=== PATIENT | female | born 1980 | race Caucasian/White ===

== ENCOUNTER → 2016-07-20 | Outpatient (CLI) | payer BC ==
[~2016-07-20] MED LIST: AMPH1TAB58 PO; ATV5X PO; B-CO1CAP3; CLR10 PO; CONJ.6255 PO; DICY10CA12 PO; ERGO500037 PO; ESTR0.05 TOP; LSX20 PO; MAGN400T6 PO; MULT-506 PO; OMEP20CA9 PO; SERT100T PO; THY/30 PO
== END | disposition home or self-care (01) ==
LOC: C.PAPS 13:47
PROVIDERS: ATTEND Obstetrics & Gynecology
DX: Z01.419 Encounter for gynecological examination (general) (routine) without abnormal findings (principal)

== ENCOUNTER → 2016-07-21 | Outpatient (CLI) | payer BC | END | disposition home or self-care (01) | LOC: C.LAB1850 08:04 | PROVIDERS: ATTEND Obstetrics & Gynecology | DX: E28.8 Other ovarian dysfunction (principal) ==

== ENCOUNTER → 2016-08-10 | Outpatient (CLI) | payer BC | END | disposition home or self-care (01) | LOC: C.MAMM 14:08 | PROVIDERS: ATTEND Obstetrics & Gynecology | DX: E28.8 Other ovarian dysfunction (principal); M85.859 Other specified disorders of bone density and structure, unspecified thigh ==

== ENCOUNTER → 2016-08-27 | Outpatient (CLI) | payer BC ==
[~2016-08-27] MED LIST changes: -B-CO1CAP3; -ERGO500037 PO; -ESTR0.05 TOP; -MAGN400T6 PO; -MULT-506 PO; -THY/30 PO
[2016-08-27 09:48] LABS: ALT/SGPT 24 U/L (12-78); BLOOD UREA NITROGEN 9 mg/dl (7-18); BUN/CREATININE RATIO 13.5 (10-20); CALCIUM 8.8 mg/dl (8.5-10.1); CARBON DIOXIDE 26 mmol/L (21-32); CHLORIDE 105 mmol/L (98-107); CREATININE 0.65 mg/dl (0.60-1.20); GLUCOSE 91 mg/dl (70-99); MAGNESIUM 1.8 mg/dl (1.8-2.4); POTASSIUM 4.1 mmol/L (3.5-5.1); SODIUM 138 mmol/L (136-145)
[2016-08-27 09:56] LABS: ALB/GLOB RATIO 1.1 (0.9-2); ALKALINE PHOSPHATASE 33 U/L (45-117); AST/SGOT 16 U/L (15-37); FERRITIN 32.5 ng/ml (8.0-388.0); PHOSPHORUS 3.6 mg/dl (2.5-4.9)
[2016-08-30 18:20] LABS: INSULIN LIKE GF BIND PROT 3 4.8 mg/L (3.4-7.0); INSULIN LIKE GROWTH FACTOR-I 227 ng/mL (53-331)
== END | disposition home or self-care (01) ==
LOC: C.LAB1850 07:40
PROVIDERS: ATTEND Internal Medicine Endocrinology, Diabetes & Metabolism
DX: R63.4 Abnormal weight loss (principal); E55.9 Vitamin D deficiency, unspecified; E72.12 Methylenetetrahydrofolate reductase deficiency; M85.80 Other specified disorders of bone density and structure, unspecified site

== ENCOUNTER → 2016-09-22 | Day surgery (SDC) | payer BC ==
[~2016-09-22] VITALS: Ht 172.7 cm; Wt 63.5 kg
[~2016-09-22] MED LIST changes: +B-CO1CAP3; +COSYNTROPIN INJ 1 MCG in SYRINGE 0 ML IV SCH; +ERGO500037 PO; +ESTR0.05 TOP; +MAGN400T6 PO; +MULT-506 PO; +THY/30 PO
[2016-09-22 07:51] VITALS: BP 110/72; PULSE 84; TEMP 36.7; O2SAT 99; Ht 172.7 cm; Wt 63.5 kg
--- NOTE | 2016-09-25 11:54 | EDITING REQUIRED CODING QUERY ---
DIAGNOSIS NEEDED To promote full compliance with coding requirements relating to patient care, physician participation is requested in all cases of cloth sander uncertainty. Please assist us with the question(s) below: Coding Question: The patient underwent cortrosyn stimulation on 09/22/16 as noted in the orders on the record. Please document the diagnosis that is being addressed by the medication/treatment. Provider Response: DIAGNOSIS: Thank you for your assistance, Denisa Vieira - Board Mixer Tender
== END | disposition home or self-care (01) ==
LOC: C.MTU 07:42
PROVIDERS: ATTEND Internal Medicine Endocrinology, Diabetes & Metabolism
DX: E28.8 Other ovarian dysfunction (principal); R53.83 Other fatigue; E03.9 Hypothyroidism, unspecified; E31.0 Autoimmune polyglandular failure

== ENCOUNTER → 2016-10-07 | Outpatient (CLI) | payer BC ==
[~2016-10-07] MED LIST changes: -CONJ.6255 PO; -COSYNTROPIN INJ 1 MCG in SYRINGE 0 ML IV SCH; -LSX20 PO; -OMEP20CA9 PO
[2016-10-07 10:23] LABS: THYROID STIMULATING HORMONE 3.1 uIu/ml (0.300-4.500)
== END | disposition home or self-care (01) ==
LOC: C.LAB1850 07:24
PROVIDERS: ATTEND Internal Medicine Endocrinology, Diabetes & Metabolism
DX: E03.9 Hypothyroidism, unspecified (principal); E31.0 Autoimmune polyglandular failure

== ENCOUNTER → 2016-12-09 | Outpatient (CLI) | payer BC ==
[2016-12-09 12:57] LABS: TESTOSTERONE,TOTAL 157.3 ng/dl
[2016-12-09 13:47] LABS: THYROID STIMULATING HORMONE 2.26 uIu/ml (0.300-4.500)
== END | disposition home or self-care (01) ==
LOC: C.LAB1850 10:13
PROVIDERS: ATTEND Internal Medicine Endocrinology, Diabetes & Metabolism
DX: N95.8 Other specified menopausal and perimenopausal disorders (principal); E03.9 Hypothyroidism, unspecified

== ENCOUNTER → 2017-02-18 | Outpatient (CLI) | payer OTHER ==
[~2017-02-18] MED LIST changes: -B-CO1CAP3; +B-CO1CAP3 PO; +CYCL5TAB PO; +ESTR10TA PV; +ESTR1DIS PV; +EYE DROPS OPB; +HYDR5TAB57 PO; +LEVO100T PO; +PROG1CAP PV; +RIBO1TAB4 PO; +RIZA5TAB10 PO; +[UNRECOGNIZED DRUG - CODE] INJ
== END | disposition home or self-care (01) ==
LOC: C.LAB1850 09:29
PROVIDERS: ATTEND Internal Medicine Endocrinology, Diabetes & Metabolism
DX: E03.9 Hypothyroidism, unspecified (principal)

== ENCOUNTER → 2017-03-16 | Outpatient (CLI) | payer OTHER ==
[~2017-03-16] MED LIST changes: -CYCL5TAB PO; -ESTR10TA PV; -EYE DROPS OPB; -HYDR5TAB57 PO; -LEVO100T PO; -RIBO1TAB4 PO; -RIZA5TAB10 PO; -[UNRECOGNIZED DRUG - CODE] INJ
[2017-03-16 09:35] LABS: BASO % 0.5 %; BASO ABS # 0.02 K/uL (0-0.2); EOS ABS # 0.25 K/uL (0-0.5); HEMATOCRIT 43.3 % (37-47); HEMOGLOBIN 14.5 g/dL (12.0-16.0); IG# 0.01 K/uL (0.00-0.02); LYMPH % 32.5 %; LYMPH ABS # 1.35 K/uL (1.2-3.4); MEAN CELL VOLUME 95.4 fL (80-100); MEAN CORPUSCULAR HEMOGLOBIN 31.9 pg (25-34); MEAN CORPUSCULAR HGB CONC 33.5 g/dl (32-36); MONO % 6.3 %; MONO ABS # 0.26 K/uL (0.11-0.59); NEUT % 54.5 %; NEUT ABS # 2.26 K/uL (1.4-6.5); PLATELET COUNT 224 K/uL (130-400); RED CELL DISTRIBUTION WIDTH CV 12.8 % (11.5-14.5); RED CELL DISTRIBUTION WIDTH SD 43.7 fL (36.4-46.3); WHITE BLOOD COUNT 4.15 K/uL (4.8-10.8)
[2017-03-16 09:49] LABS: BLOOD UREA NITROGEN 10 mg/dl (7-18); CREATININE 0.67 mg/dl (0.60-1.20); GLUCOSE 94 mg/dl (70-99)
[2017-03-16 09:50] LABS: ALBUMIN 4.1 gm/dl (3.4-5.0); ALT/SGPT 16 U/L (12-78); CALCIUM 8.9 mg/dl (8.5-10.1); CARBON DIOXIDE 26 mmol/L (21-32); SODIUM 136 mmol/L (136-145)
[2017-03-16 09:51] LABS: CORTISOL AM*DRAW BETWEEN 7-9AM 12.02 mcg/dl (4.30-22.40)
[2017-03-16 09:52] LABS: ALKALINE PHOSPHATASE 32 U/L (45-117); AST/SGOT 14 U/L (15-37); TOTAL PROTEIN 7.6 gm/dl (6.4-8.2)
[2017-03-20 00:32] LABS: INSULIN LIKE GROWTH FACTOR-I 190 ng/mL (53-331)
== END | disposition home or self-care (01) ==
LOC: C.LAB1850 07:26
PROVIDERS: ATTEND Internal Medicine Endocrinology, Diabetes & Metabolism
DX: E31.0 Autoimmune polyglandular failure (principal)

== ENCOUNTER → 2017-03-19 | Day surgery (SDC) | payer OTHER ==
[~2017-03-19] VITALS: Ht 172.7 cm; Wt 67.2 kg
[~2017-03-19] MED LIST changes: +COSYNTROPIN INJ 1 MCG in SYRINGE 0 ML IV SCH
--- NOTE | 2017-03-19 07:52 | DIAGNOSTIC IMAGING REPORT ---
Thyroid ultrasonography CLINICAL HISTORY: Z98.890 H/O [id number] COMPARISON STUDY: Outside examination dated 07/05/2015 FINDINGS: There are postsurgical changes of a right lobe thyroidectomy. The left lobe measures 5.3 x 1.6 x 1.3 cm. There is a minimally hypoechoic circumscribed wider than tall 5 mm left lobe thyroid nodule. This remains unchanged from the preceding study. This nodule demonstrates no suspicious morphologic characteristics. IMPRESSION: 1. Interval right lobe thyroidectomy 2. Stable 5 mm left lobe thyroid nodule Electronically signed by: John Ames M.D. 03/19/2017 7:50 AM Dictated Date/Time: 03/19/2017 7:48 AM
[2017-03-19 08:04] VITALS: BP 109/74; PULSE 82; TEMP 36.8; O2SAT 99; Ht 172.7 cm; Wt 67.2 kg
[2017-03-19 09:16] VITALS: BP 110/77; PULSE 77; TEMP 36.5; O2SAT 99
[2017-03-19 09:51] VITALS: BP 123/82; PULSE 77; TEMP 36.9; O2SAT 99
== END | disposition home or self-care (01) ==
LOC: C.MTU 07:10
PROVIDERS: ATTEND Internal Medicine Endocrinology, Diabetes & Metabolism
DX: Z98.890 Other specified postprocedural states (principal); E04.1 Nontoxic single thyroid nodule

== ENCOUNTER → 2017-05-21 | Outpatient (CLI) | payer OTHER ==
[~2017-05-21] MED LIST changes: -COSYNTROPIN INJ 1 MCG in SYRINGE 0 ML IV SCH; -ESTR0.05 TOP
== END | disposition home or self-care (01) ==
LOC: C.LAB1850 09:59
PROVIDERS: ATTEND Internal Medicine Endocrinology, Diabetes & Metabolism
DX: M85.80 Other specified disorders of bone density and structure, unspecified site (principal); E31.0 Autoimmune polyglandular failure

== ENCOUNTER → 2017-06-25 | Outpatient (CLI) | payer OTHER ==
[~2017-06-25] MED LIST changes: -B-CO1CAP3 PO; +CYCL5TAB PO; +ESTR10TA PV; -ESTR1DIS PV; +EYE DROPS OPB; +HYDR5TAB57 PO; +LEVO100T PO; -PROG1CAP PV; +RIBO1TAB4 PO; +RIZA5TAB10 PO; -THY/30 PO; +[UNRECOGNIZED DRUG - CODE] INJ
== END | disposition home or self-care (01) ==
LOC: C.LAB1850 08:08
PROVIDERS: ATTEND Internal Medicine Endocrinology, Diabetes & Metabolism
DX: E28.8 Other ovarian dysfunction (principal); E03.9 Hypothyroidism, unspecified; M85.80 Other specified disorders of bone density and structure, unspecified site

== ENCOUNTER → 2017-06-28 | Day surgery (SDC) | payer OTHER ==
[2017-06-22 10:46] VITALS: Ht 172.7 cm; Wt 76.3 kg
--- NOTE | 2017-06-22 11:24 | PAT Medication Instructions ---
Service Date June 22, 2017. Current Home Medication List Amphetamine-Dextroamphetamine 5MG (Adderall 5MG), 5 MG PO TID Cyclobenzaprine Hcl (Flexeril), 5 MG PO TID PRN for PRN Dicyclomine Hcl (Dicyclomine Hcl), 20 MG PO BID PRN for Cramping or Diarrhea Ergocalciferol (Vitamin D 18271 Unit), 50,000 UNIT PO WK Estradiol Vaginal (Vagifem), 1 TAB PV Q3-4MONTHS Hydrocortisone (Cortef), 5 MG PO BID Hydrocortisone Sod Succinate (Solu-Cortef), 100 MG INJ UD PRN for RN Levothyroxine Sodium (Synthroid), 100 MCG PO AM Loratadine (Claritin), 10 MG PO DAILY PRN for Seasonal Allergies Lorazepam (Lorazepam), 0.5 MG PO BID PRN for Anxiety and/or Sedation Magnesium Oxide (Mag-Ox), 400 MG PO QPM Multivitamin (Multivitamin), 1 TAB PO QPM Riboflavin (Riboflavin), 400 MG PO QPM Rizatriptan Benzoate (Maxalt), 5 MG PO UD PRN for N Sertraline Hcl (Zoloft), 100 MG PO QPM [Eye Drops], 1 DROP OPB QAM Medication Instructions For Your Scheduled Surgery -Continue as directed: Ergocalciferol (Vitamin D 84415 Unit), 50,000 UNIT PO WK Estradiol Vaginal (Vagifem), 1 TAB PV Q3-4MONTHS - Hold the following medications the morning of surgery: Amphetamine-Dextroamphetamine 5MG (Adderall 5MG), 5 MG PO TID Cyclobenzaprine Hcl (Flexeril), 5 MG PO TID PRN for PRN Dicyclomine Hcl (Dicyclomine Hcl), 20 MG PO BID PRN for Cramping or Diarrhea Loratadine (Claritin), 10 MG PO DAILY PRN for Seasonal Allergies - Take the following medications the morning of surgery with a sip of water: Hydrocortisone (Cortef), 5 MG PO BID Hydrocortisone Sod Succinate (Solu-Cortef), 100 MG INJ UD PRN (if needed) Levothyroxine Sodium (Synthroid), 100 MCG PO AM Lorazepam (Lorazepam), 0.5 MG PO BID PRN for Anxiety and/or Sedation (if needed) Rizatriptan Benzoate (Maxalt), 5 MG PO UD PRN (if needed) [Eye Drops], 1 DROP OPB QAM - Take the following medications as scheduled the night before surgery: Amphetamine-Dextroamphetamine 5MG (Adderall 5MG), 5 MG PO TID Cyclobenzaprine Hcl (Flexeril), 5 MG PO TID PRN for PRN (if needed) Dicyclomine Hcl (Dicyclomine Hcl), 20 MG PO BID PRN for Cramping or Diarrhea ( if needed) Hydrocortisone (Cortef), 5 MG PO BID Hydrocortisone Sod Succinate (Solu-Cortef), 100 MG INJ UD PRN (if needed) Loratadine (Claritin), 10 MG PO DAILY PRN for Seasonal Allergies (if needed) Lorazepam (Lorazepam), 0.5 MG PO BID PRN for Anxiety and/or Sedation (if needed) Magnesium Oxide (Mag-Ox), 400 MG PO QPM Multivitamin (Multivitamin), 1 TAB PO QPM Riboflavin (Riboflavin), 400 MG PO QPM Rizatriptan Benzoate (Maxalt), 5 MG PO UD PRN (if needed) Sertraline Hcl (Zoloft), 100 MG PO QPM FOLLOW YOUR FINANCIAL ASSISTANCE ADVISOR'S INSTRUCTIONS FOR STRESS DOSING OF CORTEF If you have any questions please call us at [phone] or [phone] or [phone]
[2017-06-22 12:57] LABS: BASO % 0.7 %; BASO ABS # 0.03 K/uL (0-0.2); EOS % 2.7 %; EOS ABS # 0.12 K/uL (0-0.5); HEMATOCRIT 40.4 % (37-47); HEMOGLOBIN 13.7 g/dL (12.0-16.0); LYMPH % 32.6 %; LYMPH ABS # 1.43 K/uL (1.2-3.4); MEAN CELL VOLUME 94.6 fL (80-100); MEAN CORPUSCULAR HEMOGLOBIN 32.1 pg (25-34); MEAN CORPUSCULAR HGB CONC 33.9 g/dl (32-36); MEAN PLATELET VOLUME 10.3 fL (7.4-10.4); MONO ABS # 0.22 K/uL (0.11-0.59); NEUT ABS # 2.58 K/uL (1.4-6.5); PLATELET COUNT 241 K/uL (130-400); RED CELL DISTRIBUTION WIDTH CV 12.2 % (11.5-14.5); RED CELL DISTRIBUTION WIDTH SD 41.7 fL (36.4-46.3); WHITE BLOOD COUNT 4.38 K/uL (4.8-10.8)
[2017-06-22 13:13] LABS: CALCIUM 8.8 mg/dl (8.5-10.1); CREATININE 0.68 mg/dl (0.60-1.20); POTASSIUM 4.6 mmol/L (3.5-5.1)
[~2017-06-28] VITALS: Ht 172.7 cm; Wt 76.3 kg
[~2017-06-28] MED LIST changes: +ATROPINE SULFATE 0.1 MG/ML 5ML SYR IV PRN; +DEXAMETHASONE SOD INJ 4 MG/ML VIAL ONE; +FENTANYL CITRATE INJ 50 MCG/1 ML 2 ML VIAL IV PRN; +FENTANYL CITRATE INJ 50 MCG/1 ML 2 ML VIAL ONE; +HYDROCORTISONE SOD SUCCINATE 100 MG/2 ML VIAL IV SCH; +KETOROLAC TROMETHAMINE 30 MG/ML VIAL ONE; +LACTATED RINGER'S 1000ML 1,000 ML IV SCH; +LIDOCAINE HCL 2% 2 ML VIAL (20MG/ML) ONE; +MIDAZOLAM HCL 1 MG/ML 2ML VIAL ONE; +ONDANSETRON INJ 2 MG/ML 2 ML VIAL IV PRN; +ONDANSETRON INJ 2 MG/ML 2 ML VIAL ONE; +OXYCODONE/ACETAMINOPHEN 5-325 TAB PO PRN; +PROMETHAZINE HCL INJ 25 MG in SODIUM CHLORIDE 0.9% 50ML 50 ML IV PRN; +PROPOFOL IV EMULSION 10 MG/ML 20 ML VIAL ONE; +SCOPOLAMINE 1.5 MG TDSY TD ONE; +SILVER NITR/POTASSIUM NITRATE APPLICATOR ONE; +SODIUM CHLORIDE 0.9% 1000ML 1,000 ML IV SCH
[2017-06-28 05:45] VITALS: BP 100/76; PULSE 87; TEMP 36.7; O2SAT 99
--- NOTE | 2017-06-28 06:58 | History & Physical Bridge Note ---
H&P Re-Evaluation Bridge Note: I have examined the patient, reviewed the History & Physical and in the interval since the performance of the History & Physical I have noted the following changes of clinical significance: No changes noted. Per endocrinology , 50mg IV hydrocortisone at beginning of procedure, then double dose of home steroids for 2 days, return to normal dosage on 3rd day.
--- NOTE | 2017-06-28 07:48 | [facility] Post Operative Brief Note ---
Immediate Operative Summary Operative Date June 28, 2017. Pre-Operative Diagnosis Thickened endometrium Post-Operative Diagnosis Same as preop Procedure(s) Performed Dilation and Curettage, Hysteroscopy, Polypectomy Surgeon Dr. 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
--- NOTE | 2017-06-28 07:51 | Discharge Instructions ---
Discharge Instructions Date of Service June 28, 2017. Visit Reason for Visit: Thickened Endometrium Discharge Discharge Diagnosis / Problem: s/p D&C Discharge Goals Goal(s): Diagnostic testing, Therapeutic intervention Activity Recommendations Activity Limitations: per Instructions/Follow-up section Anesthesia . Post Anesthesia Instructions: If you have had General Anesthesia or IV Sedation: * Do not drive today. * Resume driving when surgeon permits. * Do not make important decisions or sign legal documents today. * Call surgeon for: 1. Temperature elevations greater than 101 degrees F. 2. Uncontrollable pain. 3. Excessive bleeding. 4. Persistent nausea and vomiting. 5. Medication intolerance (nausea, vomiting or rash). * For nausea and vomiting use only clear liquids such as: tea, soda, bouillon until nausea subsides, then gradually increase diet as tolerated. * If you have any concerns or questions, call your surgeon's office. If physician is unavailable and it is an emergency, call 911 or go to the nearest emergency room. . Instructions / Follow-Up Instructions / Follow-Up ACTIVITY RECOMMENDATIONS: * Avoid tampons, douching, hot tubs, pools, and intercourse until bleeding has stopped. * May shower as usual. * No strenuous activity for 24-48 hours. After 24-48 hours, you may do anything you feel like doing (driving and sports are okay). SPECIAL CARE INSTRUCTIONS: Special Diet: * Mild nausea may occur in the immediate post-operative period. * Take clear liquids such as tea, cola or bouillon until all nausea has subsided; you may then resume your normal diet. Special Care: * Light bleeding and vaginal spotting can last from a few days to 3-4 weeks. Call your doctor if bleeding becomes heavier than the heaviest part of your period. * Check your temperature twice a day for one week. If it goes above 100.4 degrees Fahrenheit (38.0 Celsius), notify your doctor. * Call your doctor's office for an appointment for 6 weeks after your surgery. FOLLOW-UP VISIT: Call your doctor's office for an appointment for 6 weeks after your surgery. Diet Recommendations Recommended Home Diet: resume previous diet Procedures Procedures Performed: Dilation and Curettage, Hysteroscopy, Polypectomy Pending Studies Studies pending at discharge: yes List of pending studies: Path: endometrial curettings, cervical polyp Medical Emergencies . Who to Call and When: Medical Emergencies: If at any time you feel your situation is an emergency, please call 911 immediately. . Non-Emergent Contact Non-Emergency issues call your: Primary Care Provider, Scouring Machine Tender . . "Provider Documentation" section prepared by Meche Montgomery. .
--- NOTE | 2017-06-28 07:57 | [facility] Operative Report ---
Operative Report Operative Date June 28, 2017. Pre-Operative Diagnosis Thickened endometrium Post-Operative Diagnosis Same as preop Procedure(s) Performed Dilation and Curettage, Hysteroscopy, Polypectomy Surgeon Dr. 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 That ultrasound reported thickened endometrium and she was recommended to undergo hysteroscopy D&C. She has history of premature ovarian failure, hypothyroidism, adrenal insufficiency. She has seen endocrinology at [facility] and was most recently seen a animal rehabilitator in [facility] using estradiol and testosterone let us and Prometrium 200 mg for 10 days every 3 months for withdrawal bleed. Description of Procedure The patient was seen in the preoperative holding area risks benefits alternatives to surgery were reviewed she elected to proceed with the case. Informed consent had been obtained in the office prior to the procedure. All questions were answered. The patient was taken the operating room, where general anesthesia was administered. She received 50 mg IV hydrocortisone prior to procedure per the recommendations of endocrinology. She is prepared and draped in the usual sterile fashion with feet in yellowfin stirrups in the dorsal lithotomy position. Timeout was confirmed. A weighted speculum was placed in the vagina the cervix was visualized, and grasped on its anterior lip with a single tooth tenaculum. The uterus was sounded to 7 cm, and the cervix was gently dilated to admit the hysteroscope. 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 No obvious endometrial polyp, however a small anterior cervical polyp was noted the hysteroscope was removed, and a gentle curettage was undertaken with a sharp curette. Next, the cervical polyp was grasped with an Allis clamp, and using Metzenbaum scissors the polyp was resected and sent to pathology as a separate specimen. Hemostasis was achieved with direct pressure. Patient tolerated the procedure well, and was taken to the recovery area in stable and good condition. I attest to the content of the Intraoperative Record and any orders documented therein. Any exceptions are noted below.
[2017-06-28 08:55] VITALS: BP 114/77; PULSE 79; TEMP 36.4; O2SAT 99
[2017-06-28 09:10] VITALS: BP 111/75; PULSE 69; TEMP 36.4; O2SAT 100
--- NOTE | 2017-06-28 09:19 | Anesthesiology Progress Note ---
Anesthesia Post Op Note Date & Time June 28, 2017 at 09:19 Vital Signs Pain Intensity: 3 Vital Signs Past 12 Hours Date Time Temp Pulse Resp B/P (MAP) Pulse Ox O2 Delivery O2 Flow Rate FiO2 06/28/17 08:45 36.7 73 14 117/80 98 Room Air 06/28/17 08:35 74 12 123/85 98 Room Air 06/28/17 08:25 71 15 114/81 100 Room Air 06/28/17 08:15 68 12 116/75 100 Oxymask 10 06/28/17 08:05 83 20 128/77 100 Oxymask 10 06/28/17 07:58 36.0 88 16 127/76 100 Oxymask 10 06/28/17 05:45 36.7 87 18 100/76 (84) 99 Room Air Notes Mental Status: alert / awake / arousable, participated in evaluation Pt Amnestic to Procedure: Yes Nausea / Vomiting: adequately controlled Pain: adequately controlled Airway Patency, RR, SpO2: stable & adequate BP & HR: stable & adequate Hydration State: stable & adequate Anesthetic Complications: no major complications apparent
[2017-06-28 09:25] VITALS: BP 121/75; PULSE 70; O2SAT 99
[2017-06-28 09:58] VITALS: BP 108/65; PULSE 78; TEMP 36.4; O2SAT 99
== END | disposition home or self-care (01) ==
LOC: C.ACU 05:12
PROVIDERS: ATTEND Obstetrics & Gynecology
DX: R93.8 Abnormal findings on diagnostic imaging of other specified body structures (principal); N84.1 Polyp of cervix uteri; F90.9 Attention-deficit hyperactivity disorder, unspecified type; F43.10 Post-traumatic stress disorder, unspecified; E27.40 Unspecified adrenocortical insufficiency; F17.210 Nicotine dependence, cigarettes, uncomplicated; R63.4 Abnormal weight loss; E72.12 Methylenetetrahydrofolate reductase deficiency; E55.9 Vitamin D deficiency, unspecified; Z98.890 Other specified postprocedural states; E03.9 Hypothyroidism, unspecified; Z88.1 Allergy status to other antibiotic agents; Z82.5 Family history of asthma and other chronic lower respiratory diseases; Z82.49 Family history of ischemic heart disease and other diseases of the circulatory system; Z83.49 Family history of other endocrine, nutritional and metabolic diseases

== ENCOUNTER → 2017-09-07 | Outpatient (CLI) | payer OTHER ==
[~2017-09-07] MED LIST changes: -ATROPINE SULFATE 0.1 MG/ML 5ML SYR IV PRN; -DEXAMETHASONE SOD INJ 4 MG/ML VIAL ONE; -ESTR10TA PV; -FENTANYL CITRATE INJ 50 MCG/1 ML 2 ML VIAL IV PRN; -FENTANYL CITRATE INJ 50 MCG/1 ML 2 ML VIAL ONE; -HYDROCORTISONE SOD SUCCINATE 100 MG/2 ML VIAL IV SCH; -KETOROLAC TROMETHAMINE 30 MG/ML VIAL ONE; -LACTATED RINGER'S 1000ML 1,000 ML IV SCH; -LIDOCAINE HCL 2% 2 ML VIAL (20MG/ML) ONE; -MIDAZOLAM HCL 1 MG/ML 2ML VIAL ONE; -ONDANSETRON INJ 2 MG/ML 2 ML VIAL IV PRN; -ONDANSETRON INJ 2 MG/ML 2 ML VIAL ONE; -OXYCODONE/ACETAMINOPHEN 5-325 TAB PO PRN; -PROMETHAZINE HCL INJ 25 MG in SODIUM CHLORIDE 0.9% 50ML 50 ML IV PRN; -PROPOFOL IV EMULSION 10 MG/ML 20 ML VIAL ONE; -SCOPOLAMINE 1.5 MG TDSY TD ONE; -SILVER NITR/POTASSIUM NITRATE APPLICATOR ONE; -SODIUM CHLORIDE 0.9% 1000ML 1,000 ML IV SCH
== END | disposition home or self-care (01) ==
LOC: C.LAB1850 09:54
PROVIDERS: ATTEND Internal Medicine Endocrinology, Diabetes & Metabolism
DX: E03.9 Hypothyroidism, unspecified (principal)

== ENCOUNTER 2022-04-17 14:55 | Inpatient (IN) ==
--- NOTE | 2022-04-17 15:14 | Emergency Department Note ---
Impression & Plan Alcohol withdrawal, Acute dehydration ED Provider Note NAME: GATO LÓPEZ AGE: 41 SEX: F : 1980 ARRIVES VIA: Walk-In INFORMANT: Patient, ED PROVIDER(S): Jam Aragon MD CHIEF COMPLAINT: Alcohol withdrawal MEDICAL DECISION MAKING: IV was established blood work is obtained the patient was placed on monitor. The patient did have banana bag ordered loaded with 50 of Librium and given 5 of IV Valium due to concern for withdrawal symptoms. Patient's blood work showed a normal white count H&H and platelet count kidney function is unremarkable BSG of 93. AST at 50 lipase and other LFTs unremarkable. B12 and folate ordered. Folate low vitamin B12 normal. Coags normal COVID-negative. Given the patient's alcohol withdrawal related symptoms do believe the patient would benefit from admission. Critical Care: I have personally spent 45 minutes of critical care time in direct management of this patient. This includes bedside care, interpretation of diagnostic studies, and testing, discussion with consultants, patient, and family members, and other require inpatient management activities. This 45 minutes is in excess of all separately billable procedures. Prior /Outside records reviewed: None Differential diagnosis: Alcohol intoxication, alcohol withdrawal, toxicologic, infection, hypoglycemia, electrolyte abnormalities, arrhythmias, dehydration among others were considered Diagnostics, as interpreted by me: ECG: Sinus tachycardia, rate of 104 normal intervals normal axis no ST elevations, T wave version aVL but not in lead I. Cardiac monitoring: An order was placed for continuous cardiac monitoring. The monitor shows a rate of 92 with sinus rhythm. Patient was placed on pulse oximetry Medical decision rules: none Imaging studies: See below HPI: Patient presents due to concern for alcohol withdrawal. Patient states that last drink was at 2:00 this morning and typically drinks 10 mixed drinks per day which may have up to 2 shots per drink. The patient has been drinking like this over the last 4 to 6 months. Patient denies any nausea or vomiting. The patient has had worsening drinking over 2 years but especially over the last several months. The patient has no prior history of DTs or seizures. Patient does want to stop drinking and is interested in inpatient rehab. Patient denies any drug use but does use tobacco. PAST MEDICAL HISTORY: See Below PAST SURGICAL HISTORY: See Below SOCIAL HISTORY: See Below HOME MEDICATIONS: See Below ALLERGIES: See Below VITALS: See Below PHYSICAL EXAMINATION: GENERAL: NAD, wearing a mask, non-toxic. Wearing glasses. Tremulous. EYE EXAM: Normal conjunctiva. PERRL, no anisocoria and EOM's grossly intact w/o pain. NECK: Supple, no nuchal rigidity, no adenopathy, non-tender. No signs of meningismus. FROM of the neck with good chin to chest and neck extension. No stridor. LUNGS: Clear to auscultation. Normal chest wall mechanics. HEART: NSR, no MRG. ABDOMEN: Abdomen soft, non-tender, normo-active bowel sounds, no masses, no rebound or guarding. BACK: No CVA TTP. SKIN: No rashes and no bruising. UPPER EXTREMITIES: Upper extremities are grossly normal. Bilateral upper extremity tremors noted LOWER EXTREMITIES: Grossly normal, no edema. NEURO EXAM: A&O x3, cranial nerves II-XII grossly intact, normal speech, moves all 4 extremities. Past Med/Surg History Medical History Adrenal insufficiency almost certainly NOT but uses hydrocortisone PRN "ill" Adult ADHD Anxiety Chronic headaches Hypothyroidism MTHFR gene mutation No personal hx DVT/PE; not on AC Premature ovarian failure Tobacco use Surgical History History of colonoscopy History of cryosurgery History of esophagogastroduodenoscopy (EGD) History of hysteroscopy D&C, hysteroscopy, polypectomy: 06/28/17: LMA#4 at [facility] S/P thyroidectomy Right thyroidectomy for benign nodule Family History Father Aortic dissection Dyslipidemia Hypertension Mother COPD (chronic obstructive pulmonary disease) Hypertension Hypothyroidism Other Cancer Social History Smoking Status: Current every day smoker Tobacco Type: Cigarettes Cigarettes Per Day: 1 pack per day; Tobacco Cessation Education Requested by Patient: No Hx Alcohol Use: Yes Hx Substance Use: Yes Non-Prescribed Medications: Marijuana Last Used Substance: Days (ago) Last Used Substance Other:: 3 days ago Preferred Language: Welsh Communication Ability: Effective House Wirer Required: No marital status: Current Living Situation: Family Current Living Situation Comment: Lives with parents current occupational status: employed Other Information That Helps Us Care for You: No Feels Safe at Home: Yes Safety Concerns: Feels Safe At This Time Assistive Devices: Contacts and Glasses Allergies Allergies Allergy/AdvReac Type Severity Reaction Status Date / Time ciprofloxacin Allergy Intermediate swelling Verified 12/10/21 03:17 estrogens, conjugated Allergy Intermediate rash, Verified 12/10/21 03:17 swelling medroxyprogesterone Allergy Intermediate rash, Verified 12/10/21 03:17 swelling prednisone Allergy Intermediate rash , Verified 12/10/21 03:17 swelling Home Meds Home Medications Medication Instructions Recorded Confirmed dextroamphetamine-amphetamine 10 10 mg PO DAILY 12/10/21 04/17/22 mg tablet dextroamphetamine-amphetamine 15 15 mg PO BID 12/10/21 04/17/22 mg tablet hydroxyzine HCl 25 mg tablet 25 mg PO BID PRN Anxiety 12/10/21 04/17/22 sertraline 100 mg tablet (Zoloft) 100 mg PO DAILY 12/10/21 04/17/22 Results & Data (ED) Vital Signs Vital Signs - 24 hr 04/17/22 14:57 Temperature 36.7 C Temperature Source Temporal Artery Scan Pulse Rate 121 H Respiratory Rate 20 Respiratory Effort / Characteristics Non-Labored Respiratory Depth Normal Blood Pressure 163/99 H Blood Pressure Mean 120 Blood Pressure Position Sitting Pulse Oximetry 97 Oxygen Delivery Method Room Air Sepsis Recent Fever Within 48 Hours No Sepsis New/Unexplained Change in Mental Status No Sepsis Action Taken by Nursing No Action Required Home Medications Current Medication List: was personally reviewed by me Laboratory Data Attestation: I reviewed the patient's lab results. 04/18/22 04:25 04/18/22 04:25 Lab Results 04/17/22 04/17/22 04/17/22 Range/Units 16:00 16:00 16:00 WBC 6.15 (4.8-10.8) K/ul RBC 4.02 L (4.20-5.40) M/uL Hgb 14.3 (12.0-16.0) g/dl Hct 40.2 (37.0-47.0) % MCV 100.0 (80.0-100.0) fL MCH 35.6 H (25.0-34.0) pg MCHC 35.6 (32.0-36.0) g/dL RDW Std Deviation 46.0 (36.4-46.3) fL RDW Coeff of Ashley 12.4 (11.5-14.5) % Plt Count 201 (130-400) K/uL MPV 10.5 (9.4-12.4) fL Immature Gran % (Auto) 0.3 % Neut % (Auto) 70.9 % Lymph % (Auto) 20.3 % [place] % (Auto) 5.7 % Eos % (Auto) 2.3 % Baso % (Auto) 0.5 % Neut # (Auto) 4.36 (1.40-6.50) K/uL Lymph # (Auto) 1.25 (1.2-3.4) K/uL [place] # (Auto) 0.35 (0.11-0.59) K/uL Eos # (Auto) 0.14 (0-0.50) K/uL Baso # (Auto) 0.03 (0-0.2) K/uL Immature Gran # (Auto) 0.02 (0.01-0.20) K/uL PT (9.0-12.0) Seconds INR (0.9-1.1) APTT (21.0-31.0) Seconds PTT Ratio Sodium 140 (136-145) mmol/L Potassium 3.8 (3.5-5.1) mmol/L Chloride 105 (98-107) mmol/L Carbon Dioxide 29 (21-32) mmol/L Anion Gap 6 (3-11) BUN 9 (6-23) mg/dl Creatinine 0.62 (0.6-1.2) mg/dl Est Cr Clr Drug Dosing 121.7 ml/min Est GFR ( Amer) 130.7 ml/min Est GFR (Non-Af Amer) 112.8 ml/min BUN/Creatinine Ratio 14.5 (10-20) Glucose 93 (70-99(Fasting)) mg/dl Calcium 9.5 (8.5-10.1) mg/dl Total Bilirubin 0.7 (0.2-1.0) mg/dl AST 50 H (13-39) U/L ALT 38 (7-52) U/L Alkaline Phosphatase 53 (34-104) U/L Total Protein 8.0 (6.0-8.3) gm/dl Albumin 4.6 (3.4-5.0) gm/dl Globulin 3.4 (2.5-4.0) gm/dl Albumin/Globulin Ratio 1.4 (0.9-2) Lipase 36 (11-82) U/L Vitamin B12 526 (180-914) pg/ml Folate 5.18 L (>5.38) ng/ml TSH (0.300-4.500) uIu/ml Ethyl Alcohol mg/dL (<10.0) mg/dl SARS-CoV-2, RNA, NAAT (NEGATIVE) 04/17/22 04/17/22 04/17/22 Range/Units 16:00 16:00 16:00 WBC (4.8-10.8) K/ul RBC (4.20-5.40) M/uL Hgb (12.0-16.0) g/dl Hct (37.0-47.0) % MCV (80.0-100.0) fL MCH (25.0-34.0) pg MCHC (32.0-36.0) g/dL RDW Std Deviation (36.4-46.3) fL RDW Coeff of Ashley (11.5-14.5) % Plt Count (130-400) K/uL MPV (9.4-12.4) fL Immature Gran % (Auto) % Neut % (Auto) % Lymph % (Auto) % [place] % (Auto) % Eos % (Auto) % Baso % (Auto) % Neut # (Auto) (1.40-6.50) K/uL Lymph # (Auto) (1.2-3.4) K/uL [place] # (Auto) (0.11-0.59) K/uL Eos # (Auto) (0-0.50) K/uL Baso # (Auto) (0-0.2) K/uL Immature Gran # (Auto) (0.01-0.20) K/uL PT 10.7 (9.0-12.0) Seconds INR 1.0 (0.9-1.1) APTT 25.3 (21.0-31.0) Seconds PTT Ratio 0.9 Sodium (136-145) mmol/L Potassium (3.5-5.1) mmol/L Chloride (98-107) mmol/L Carbon Dioxide (21-32) mmol/L Anion Gap (3-11) BUN (6-23) mg/dl Creatinine (0.6-1.2) mg/dl Est Cr Clr Drug Dosing ml/min Est GFR ( Amer) ml/min Est GFR (Non-Af Amer) ml/min BUN/Creatinine Ratio (10-20) Glucose (70-99(Fasting)) mg/dl Calcium (8.5-10.1) mg/dl Total Bilirubin (0.2-1.0) mg/dl AST (13-39) U/L ALT (7-52) U/L Alkaline Phosphatase (34-104) U/L Total Protein (6.0-8.3) gm/dl Albumin (3.4-5.0) gm/dl Globulin (2.5-4.0) gm/dl Albumin/Globulin Ratio (0.9-2) Lipase (11-82) U/L Vitamin B12 (180-914) pg/ml Folate (>5.38) ng/ml TSH 3.604 (0.300-4.500) uIu/ml Ethyl Alcohol mg/dL < 10.0 (<10.0) mg/dl SARS-CoV-2, RNA, NAAT (NEGATIVE) 04/17/22 Range/Units 16:00 WBC (4.8-10.8) K/ul RBC (4.20-5.40) M/uL Hgb (12.0-16.0) g/dl Hct (37.0-47.0) % MCV (80.0-100.0) fL MCH (25.0-34.0) pg MCHC (32.0-36.0) g/dL RDW Std Deviation (36.4-46.3) fL RDW Coeff of Ashley (11.5-14.5) % Plt Count (130-400) K/uL MPV (9.4-12.4) fL Immature Gran % (Auto) % Neut % (Auto) % Lymph % (Auto) % [place] % (Auto) % Eos % (Auto) % Baso % (Auto) % Neut # (Auto) (1.40-6.50) K/uL Lymph # (Auto) (1.2-3.4) K/uL [place] # (Auto) (0.11-0.59) K/uL Eos # (Auto) (0-0.50) K/uL Baso # (Auto) (0-0.2) K/uL Immature Gran # (Auto) (0.01-0.20) K/uL PT (9.0-12.0) Seconds INR (0.9-1.1) APTT (21.0-31.0) Seconds PTT Ratio Sodium (136-145) mmol/L Potassium (3.5-5.1) mmol/L Chloride (98-107) mmol/L Carbon Dioxide (21-32) mmol/L Anion Gap (3-11) BUN (6-23) mg/dl Creatinine (0.6-1.2) mg/dl Est Cr Clr Drug Dosing ml/min Est GFR ( Amer) ml/min Est GFR (Non-Af Amer) ml/min BUN/Creatinine Ratio (10-20) Glucose (70-99(Fasting)) mg/dl Calcium (8.5-10.1) mg/dl Total Bilirubin (0.2-1.0) mg/dl AST (13-39) U/L ALT (7-52) U/L Alkaline Phosphatase (34-104) U/L Total Protein (6.0-8.3) gm/dl Albumin (3.4-5.0) gm/dl Globulin (2.5-4.0) gm/dl Albumin/Globulin Ratio (0.9-2) Lipase (11-82) U/L Vitamin B12 (180-914) pg/ml Folate (>5.38) ng/ml TSH (0.300-4.500) uIu/ml Ethyl Alcohol mg/dL (<10.0) mg/dl SARS-CoV-2, RNA, NAAT NEGATIVE (NEGATIVE) Administered Medications Discontinued Medications Acetaminophen (Acetaminophen 325 Mg Tab) 650 mg PO Q4H PRN PRN Reason: Pain or Fever Stop: 05/17/22 19:47 Last Admin: 04/18/22 10:01 Dose: 650 mg Documented By: MCKENNA Chlordiazepoxide HCl (Chlordiazepoxide Hcl 25 Mg Cap) 50 mg PO NOW ONE Stop: 04/17/22 15:30 Last Admin: 04/17/22 16:06 Dose: 50 mg Documented By: XIANG Diazepam (Diazepam 5 Mg/Ml Inj 10ml Vial) 5 mg IV NOW STA Stop: 04/17/22 15:30 Last Admin: 04/17/22 16:09 Dose: 5 mg Documented By: XIANG Diazepam (Diazepam 2 Mg Tablet) 2 mg PO NOW ONE Stop: 04/18/22 00:15 Last Admin: 04/18/22 00:28 Dose: 2 mg Documented By: SKIP Diazepam (Diazepam 2 Mg Tablet) 2 mg PO NOW ONE Stop: 04/18/22 19:43 Last Admin: 04/18/22 20:52 Dose: Not Given Documented By: AISHWARYA Folic Acid (Folic Acid 1 Mg Tab) 1 mg PO QAM [facility] Stop: 05/18/22 08:59 Last Admin: 04/18/22 09:44 Dose: 1 mg Documented By: MCKENNA Gabapentin (Gabapentin 600 Mg Tab) 600 mg PO Q8H [facility] Stop: 04/19/22 14:01 Last Admin: 04/18/22 20:53 Dose: Not Given Documented By: AISHWARYA Gabapentin (Gabapentin 600 Mg Tab) 600 mg PO Q6H [facility] Stop: 04/18/22 12:01 Last Admin: 04/18/22 11:46 Dose: 600 mg Documented By: Admin: 04/18/22 05:27 Dose: 600 mg Documented By: SKIP Gabapentin (Gabapentin 600 Mg Tab) 1,200 mg PO NOW ONE Stop: 04/17/22 20:01 Last Admin: 04/17/22 20:18 Dose: 1,200 mg Documented By: ESTEFANI Guaifenesin (Guaifenesin 600 Mg Tabcr) 600 mg PO Q12 [facility] Stop: 05/18/22 10:44 Last Admin: 04/18/22 20:53 Dose: Not Given Documented By: Admin: 04/18/22 10:51 Dose: 600 mg Documented By: MCKENNA Multivitamins 10 ml/ Thiamine HCl 100 mg/ Folic Acid 1 mg/Sodium Chloride 1 ,011.2 mls @ 500 mls/hr IV .Q2H2M ONE Stop: 04/17/22 17:30 Last Infusion: 04/17/22 17:35 Dose: 0 mls/hr Documented By: Admin: 04/17/22 16:09 Dose: 500 mls/hr Documented By: XIANG Thiamine HCl 100 mg/ Syringe 10 mls @ 2 [facility] [place]: 05/18/22 08:59 Last Admin: 04/18/22 09:44 Dose: 2 mls/min Documented By: MCKENNA Lorazepam (Lorazepam 2 Mg/1 Ml Vial) 1 mg IV UD PRN; Protocol PRN Reason: EtOH Withdrawal AWSS Score 6,7 Stop: 05/17/22 19:47 Last Admin: 04/18/22 16:34 Dose: 1 mg Documented By: Admin: 04/18/22 12:18 Dose: 1 mg Documented By: MCKENNA Lorazepam (Lorazepam 0.5 Mg Tab) 0.5 mg PO NOW STA Stop: 04/17/22 23:01 Last Admin: 04/17/22 23:04 Dose: 0.5 mg Documented By: MARGO Miscellaneous (Remove Nicoderm Patch) 1 each N/A DAILY@0859 [facility] Stop: 05/18/22 08:58 Last Admin: 04/18/22 09:48 Dose: 1 each Documented By: MCKENNA Nicotine (Nicotine 21 Mg/24 Hr Tdsy) 21 mg TD QAM [facility] Stop: 04/17/22 17:02 Last Admin: 04/17/22 17:36 Dose: 21 mg Documented By: XIANG Nicotine (Nicotine 14 Mg/24 Hr Patch) 14 mg TD QAM [facility] Stop: 05/18/22 12:14 Last Admin: 04/18/22 12:11 Dose: 14 mg Documented By: MCKENNA Pantoprazole Sodium (Pantoprazole 40 Mg Tab) 40 mg PO QAM [facility] Stop: 05/18/22 19:59 Last Admin: 04/18/22 20:52 Dose: Not Given Documented By: MNM Discharge Plan Visit Data Chief Complaint: Detox Request Stated Complaint: ALCOHOL DETOX ED Provider: Jam Aragon Discharge Problem: Alcohol withdrawal, Acute dehydration Patient Disposition: Admitted As Inpatient Discharge Instructions Interventions: ED Discharge Assessment Last Done: 04/17/22 19:49
[2022-04-17] MEDS ORDERED: chlordiazePOXIDE HCl 25 MG CAP PO ONE (15:29)
[2022-04-17] MEDS ORDERED: LORazepam 2 MG/1 ML VIAL IV PRN ×6 (15:29→19:48)
[2022-04-17] MEDS ORDERED: MULTI-VITAMIN INFUSION 10 ML, THIAMINE HCL 100 MG, FOLIC ACID 1 MG in SODIUM CHLORIDE 0... IV ONE (15:29)
[2022-04-17] MEDS ORDERED: Ativan IV Alcohol Withdrawal--Active Protocol IV PRN ×2 (15:29→19:48)
[2022-04-17 16:23] LABS: Basophils # (auto) 0.03 K/uL (0-0.2); Basophils % (auto) 0.5 %; Eosinophils # (auto) 0.14 K/uL (0-0.50); Eosinophils % (auto) 2.3 %; Hematocrit (blood only) 40.2 % (37.0-47.0); Hemoglobin 14.3 g/dl (12.0-16.0); Immature Granulocytes # (auto) 0.02 K/uL (0.01-0.20); Immature Granulocytes % (auto) 0.3 %; Lymphocytes # (auto) 1.25 K/uL (1.2-3.4); Lymphocytes % (auto) 20.3 %; Mean Corpuscular Hemoglobin 35.6 pg (25.0-34.0); Mean Corpuscular Hgb Conc 35.6 g/dL (32.0-36.0); Mean Platelet Volume 10.5 fL (9.4-12.4); Monocytes # (auto) 0.35 K/uL (0.11-0.59); Monocytes % (auto) 5.7 %; Neutrophils # (auto) 4.36 K/uL (1.40-6.50); Neutrophils % (auto) 70.9 %; Platelet Count 201 K/uL (130-400); RDW Coefficient of Variation 12.4 % (11.5-14.5); Red Blood Count 4.02 M/uL (4.20-5.40); White Blood Count 6.15 K/ul (4.8-10.8)
[2022-04-17 16:37] LABS: Albumin Globulin Ratio 1.4 (0.9-2); Albumin Level 4.6 gm/dl (3.4-5.0); BUN Creatinine Ratio 14.5 (10-20); Bilirubin,Total 0.7 mg/dl (0.2-1.0); Calcium 9.5 mg/dl (8.5-10.1); Creatinine Clr Calc Pharmacy 121.7 ml/min; Est GFR (African American) 130.7 ml/min; Est GFR (Non-African American) 112.8 ml/min; Globulin 3.4 gm/dl (2.5-4.0); Potassium 3.8 mmol/L (3.5-5.1)
[2022-04-17 17:01] LABS: Partial Thromboplastin Ratio 0.9; Partial Thromboplastin Time 25.3 Seconds (21.0-31.0); Prothrombin Time 10.7 Seconds (9.0-12.0)
[2022-04-17] MEDS ORDERED: NICOTINE 21 MG/24 HR TDSY TD STA (17:01)
--- NOTE | 2022-04-17 17:42 | History & Physical Report ---
Date of Service April 17, 2022 Assessment & Plan (1) Alcohol withdrawal: Plan: Patient is a 41-year-old female with PMH anxiety, depression, PTSD, ADHD, hypothyroidism, ovarian failure, secondary adrenal insufficiency, tobacco use presented to ER for alcohol withdrawal. 10-20 drinks/day. Last consumed at 0200 04/17/22. In ER tachycardic in low 100's, other vital stable. EtOH level <10, other labs unremarkable In ER initially tremulous. Given Valium 5mg IV, Librium 50mg po, Banana bag Admit to telemetry Alcohol withdrawal protocol with gabapentin, as needed Ativan Alcohol cessation recommended Patient wants to quit and interested in rehab CBC, CMP, magnesium, phosphorus labs in a.m. (2) Hypothyroidism: Plan: Autoimmune hypothyroidism. S/P partial thyroidectomy TSH: 3.6 Previously on levothyroxine. Patient has not been taking for several years secondary to lost to follow-up Will need outpatient follow up (3) Premature ovarian failure: Plan: Previously following with Farrah and was on estradiol Has not been taking estradiol Will need outpatient follow up (4) Adrenal insufficiency: Plan: Question of minor primary adrenal insufficiency Previously followed with [facility] endocrinology. Has not been seen since 2019 Will need outpatient follow up (5) Adult ADHD: (6) Anxiety: Plan: Follows with psychiatrist-Dr. Santino Tate Previously on sertraline, Adderall, hydroxyzine as needed. Has not taken for past 2 months Will need continued outpatient follow up (7) Tobacco use: Plan: Smoking cessation encouraged Nicotine patch DVT Prophylaxis SCDs Full Code as per discussion with pt Follows with Dr Yovany Kramer for routine care Pt was seen and care coordinated with Dr Christensen. See addendum I spent a total of 60 minutes reviewing notes, outpatient records, labs, medication, coordinating, documenting and providing care for this patient excluding time spent in the performance of separately billed services. History of Present Illness Chief Complaint: Alcohol withdrawal Primary Care Provider: Yovany Kramer DO Patient is a 41-year-old female with PMH anxiety, depression, PTSD, ADHD, hypothyroidism, ovarian failure, secondary adrenal insufficiency, tobacco use presented to ER for alcohol withdrawal. Patient reports has been heavily drinking for the past 2 years, with worsening over the past several months. Drinks 10-20 drinks hard liquor a day. Last drink was 2 AM today. Patient reports that she wants to stop drinking. She is interested in rehab. Today is feeling shaky. Denies history of alcohol withdrawal, DTs, seizures. States tried to quit once by decreasing her alcohol intake. Reports has not had health insurance so has not been taking her thyroid and estradiol medications for over a year. Has not been taking her Adderall, sertraline for 2 months. Has not been seen by PCP or endocrinology since 2019. Denies fever/chills, diaphoresis, N/V/D/C, GIFF[place], dizziness, syncope, vision changes, neck pain, CP, SOB, orthopnea, palpitations, cough, sore throat, choking, otalgia, rhinorrhea, abdominal pain, paresthesias, weakness, extremity weakness, extremity edema, rashes, urinary symptoms. Allergies Allergy/AdvReac Type Severity Reaction Status Date / Time ciprofloxacin Allergy Intermediate swelling Verified 12/10/21 03:17 estrogens, conjugated Allergy Intermediate rash, Verified 12/10/21 03:17 swelling medroxyprogesterone Allergy Intermediate rash, Verified 12/10/21 03:17 swelling prednisone Allergy Intermediate rash , Verified 12/10/21 03:17 swelling Home Medications Medication Instructions Recorded Confirmed Type dextroamphetamine-amphetamine 10 10 mg PO DAILY 12/10/21 04/17/22 History mg tablet dextroamphetamine-amphetamine 15 15 mg PO BID 12/10/21 04/17/22 History mg tablet hydroxyzine HCl 25 mg tablet 25 mg PO BID PRN Anxiety 12/10/21 04/17/22 History sertraline 100 mg tablet (Zoloft) 100 mg PO DAILY 12/10/21 04/17/22 History Past Med/Surg History Medical History Adrenal insufficiency almost certainly NOT but uses hydrocortisone PRN "ill" Adult ADHD Anxiety Chronic headaches Hypothyroidism MTHFR gene mutation No personal hx DVT/PE; not on AC Premature ovarian failure Tobacco use Surgical History History of colonoscopy History of cryosurgery History of esophagogastroduodenoscopy (EGD) History of hysteroscopy D&C, hysteroscopy, polypectomy: 06/28/17: LMA#4 at [facility] S/P thyroidectomy Right thyroidectomy for benign nodule Family History (Updated 04/17/22 @ 17:51 by Simin Brown PA-C) Father Aortic dissection Dyslipidemia Hypertension Mother COPD (chronic obstructive pulmonary disease) Hypertension Hypothyroidism Other Cancer Social History (Updated 04/17/22 @ 17:52 by Simin Brown PA-C) Smoking Status: Current every day smoker Tobacco Type: Cigarettes Cigarettes Per Day: 1 pack per day; Tobacco Cessation Education Requested by Patient: No Hx Alcohol Use: Yes Hx Substance Use: Yes Non-Prescribed Medications: Marijuana Last Used Substance: Days (ago) Last Used Substance Other:: 3 days ago Preferred Language: Kenyan Communication Ability: Effective Children'S Entertainer Required: No marital status: Current Living Situation: Family Current Living Situation Comment: Lives with parents current occupational status: employed Other Information That Helps Us Care for You: No Feels Safe at Home: Yes Safety Concerns: Feels Safe At This Time Assistive Devices: Contacts and Glasses Review of Systems Review of Systems: All systems reviewed & are unremarkable except as noted in HPI & below Physical Exam Physical Exam: General: no acute distress, WDWN Head: normocephalic, atraumatic Eyes: conjunctiva non-injected, anicteric ENT: normal inspection external ears, nose, mucous membranes moist Neck: supple, trachea midline Lungs: clear, no respiratory distress, no wheezing/rhonchi/rales CV: RRR, no murmur, no pretibial edema Abd: normal BS, soft, non-tender Ext: no cyanosis, no calf tenderness Neuro: A&O x 3, no focal deficits noted, normal affect Skin: warm, dry Results & Data Results & Data ([facility]) Vital Signs (Past 12 Hours) Vital Signs Temp Pulse Pulse Resp BP BP Pulse Ox 04/17/22 17:00 103 H 17 98 04/17/22 17:00 124/85 04/17/22 16:30 104 H 22 99 04/17/22 16:00 105 H 18 100 04/17/22 17:15 106 H 04/17/22 16:12 102 H 16 131/87 99 04/17/22 14:57 36.7 C 121 H 20 163/99 H 97 O2 Del Method 04/17/22 17:00 Room Air 04/17/22 17:00 04/17/22 16:30 Room Air 04/17/22 16:00 Room Air 04/17/22 17:15 04/17/22 16:12 Room Air 04/17/22 14:57 Room Air Laboratory Results Short CBC 04/17/22 Range/Units 16:00 WBC 6.15 (4.8-10.8) K/ul Hgb 14.3 (12.0-16.0) g/dl Hct 40.2 (37.0-47.0) % Plt Count 201 (130-400) K/uL BMP 04/17/22 16:00 Sodium 140 Potassium 3.8 Chloride 105 Carbon Dioxide 29 BUN 9 Creatinine 0.62 Glucose 93 Calcium 9.5 Liver Function 04/17/22 Range/Units 16:00 Total Bilirubin 0.7 (0.2-1.0) mg/dl AST 50 H (13-39) U/L ALT 38 (7-52) U/L Alkaline Phosphatase 53 (34-104) U/L Albumin 4.6 (3.4-5.0) gm/dl Code Status & VTE Plan VTE Prophylaxis Plan VTE Prophylaxis will be ordered: Yes Supervising Physician Co-Signing Physician Notes Pt seen and examined by me, care coordinated w/ Yokasta Brown PA-C, pls refer to her note above for further detail. Pt is a 41 yo female with hx of anxiety, depression, PTSD, ADHD, hypothyroidism, ovarian failure, secondary adrenal insufficiency, tobacco use who presents for alcohol withdrawal. Patient reports has been heavily drinking, 10-20 drinks hard liquor a day. Last drink was 2 AM today. Patient reports that she wants to stop drinking. She is interested in rehab. Today is feeling shaky. Denies history of alcohol withdrawal, DTs, seizures. She is currently awake alert, sitting up in bed, eating dinner. Friend at the bedside. She is answering questions appropriately. Lungs are clear to auscultation. Heart sounds regular, mildly tachycardic. Abdomen soft nontender nondistended. No lower extremity edema. Skin is warm dry well-perfused. She is moving extremities spontaneously and without difficulty. Started gabapentin and Ativan protocol, folic acid and thiamine. Closely monitor. MD Fermin
[2022-04-17 18:03] LABS: Appearance Urine Cloudy (Clear); Bacteria Urine Automated 1+ (Negative); Bilirubin Urine Negative (Negative); Blood Urine Negative (Negative); Color Urine Yellow; Epithelial Cell Urine Auto >30 /lpf (0-5); Glucose Urine UA Negative (Negative); Ketones Urine Negative (Negative); Leukocyte Esterase Urine Trace (Negative); Nitrite Urine Negative (Negative); Pregnancy Test, Urine Negative (Negative); Protein Urine Negative (Negative); RBC Urine Automated 0-4 /hpf (0-4); Specific Gravity Urine 1.012 (1.000-1.030); Urobilinogen Urine Negative (Negative); pH Urine 7.5 (4.5-7.5)
[2022-04-17] MEDS ORDERED: GABAPENTIN 1200MG ALCOHOL WITHDRAWAL LOAD PO STA (19:48)
[2022-04-17] MEDS ORDERED: ACETAMINOPHEN 325 MG TAB PO PRN (19:48)
[2022-04-17] MEDS ORDERED: POLYETHYLENE (MIRALAX) 17 GM PACK PO PRN (19:48)
[2022-04-17] MEDS ORDERED: ONDANSETRON INJ 2 MG/ML 2 ML VIAL IV PRN (19:48)
[2022-04-17] MEDS ORDERED: GABAPENTIN 600 MG TAB PO ONE (20:00)
[2022-04-17] MEDS ORDERED: LORazepam 0.5 MG TAB PO STA (23:00)
[2022-04-18] MEDS ORDERED: diazePAM 2 MG TABLET PO ONE ×2 (00:14→19:42)
[2022-04-18 04:40] LABS: Hematocrit (blood only) 38.3 % (37.0-47.0); Hemoglobin 13.1 g/dl (12.0-16.0); Mean Corpuscular Hemoglobin 35.4 pg (25.0-34.0); Mean Corpuscular Hgb Conc 34.2 g/dL (32.0-36.0); Mean Corpuscular Volume 103.5 fL (80.0-100.0); Mean Platelet Volume 10.2 fL (9.4-12.4); Platelet Count 177 K/uL (130-400); RDW Coefficient of Variation 12.4 % (11.5-14.5); RDW Standard Deviation 47.1 fL (36.4-46.3); White Blood Count 4.94 K/ul (4.8-10.8)
[2022-04-18 04:55] LABS: Albumin Globulin Ratio 1.4 (0.9-2); BUN Creatinine Ratio 13.9 (10-20); Bilirubin,Total 0.7 mg/dl (0.2-1.0); Calcium 8.9 mg/dl (8.5-10.1); Creatinine Clr Calc Pharmacy 95.5 ml/min; Est GFR (African American) 108.5 ml/min; Est GFR (Non-African American) 93.6 ml/min; Globulin 2.9 gm/dl (2.5-4.0); Potassium 4.7 mmol/L (3.5-5.1); Total Protein 6.9 gm/dl (6.0-8.3)
[2022-04-18] MEDS: GABAPENTIN 600 MG TAB PO SCH ×2 (05:27→11:46)
--- NOTE | 2022-04-18 07:38 | Hospitalist Progress Note ---
Date of Service April 18, 2022 Assessment & Plan (1) Alcohol withdrawal: Plan: Patient is a 41-year-old female with PMH anxiety, depression, PTSD, ADHD, hypothyroidism, ovarian failure, secondary adrenal insufficiency, tobacco use presented to ER for alcohol withdrawal. 10-20 drinks/day. Last consumed at 0200 04/17/22. In ER tachycardic in low 100's, other vital stable. EtOH level <10, other labs unremarkable In ER initially tremulous. Given Valium 5mg IV, Librium 50mg po, Banana bag Admit to telemetry Alcohol withdrawal protocol with gabapentin, as needed Ativan Alcohol cessation recommended Patient wants to quit and interested in rehab CBC, CMP, magnesium, phosphorus labs in a.m. lipase normal on admission, will re-check as pt has some epigastric discomfort,also start ppi (2) Hypothyroidism: Plan: Autoimmune hypothyroidism. S/P partial thyroidectomy TSH: 3.6 Previously on levothyroxine. Patient has not been taking for several years secondary to lost to follow-up Will need outpatient follow up (3) Premature ovarian failure: Plan: Previously following with [facility] and was on estradiol Has not been taking estradiol Will need outpatient follow up (4) Adrenal insufficiency: Plan: Question of minor primary adrenal insufficiency Previously followed with [facility] endocrinology. Has not been seen since 2019 Will need outpatient follow up (5) Adult ADHD: (6) Anxiety: Plan: Follows with psychiatrist-Dr. Santino Tate Previously on sertraline, Adderall, hydroxyzine as needed. Has not taken for past 2 months Will need continued outpatient follow up (7) Tobacco use: Plan: Smoking cessation encouraged Nicotine patch DVT Prophylaxis SCDs Full Code as per discussion with pt Follows with Dr Yovany Kramer for routine care Admission and Anticipated Discharge Date Admission Date: April 17, 2022 Subjective Pt seen in follow up of alcohol withdrawal Currently sitting up in bed, in no acute distress, friend and family at the bedside Reports having some cough, first says that she has a smoker's cough, however feels that maybe now it is little worse Has some epigastric discomfort No fevers chills, says that occasionally she feels tremulous No chest pain palpitations no shortness of breath Review of Systems Review of Systems: All systems reviewed & are unremarkable except as noted in Subjective Physical Exam Physical Exam: General: no acute distress, WDWN Head: normocephalic, atraumatic Eyes: conjunctiva non-injected, anicteric ENT: normal inspection external ears, nose, mucous membranes moist Neck: supple Lungs: clear, no respiratory distress, no wheezing/rhonchi/rales CV: RRR, no murmur, no pretibial edema Abd: normal BS, soft, non-tender Ext: moves extremities Neuro: A&O x 3, no focal deficits noted, normal affect, moves extremities Skin: warm, dry Results & Data Results & Data ([facility]) Vital Signs (Past 12 Hours) Vital Signs Temp Pulse Pulse Pulse Resp BP Pulse Ox 04/18/22 07:00 85 18 136/101 H 99 04/18/22 06:56 86 04/18/22 04:00 36.3 C L 79 16 125/89 97 04/17/22 23:58 36.8 C 90 16 131/93 97 04/17/22 20:17 94 H 04/17/22 20:19 36.9 C 95 H 18 139/94 98 04/17/22 20:19 04/17/22 20:04 90 19 139/94 98 Pulse Ox O2 Del Method O2 Del Method 04/18/22 07:00 Room Air 04/18/22 06:56 04/18/22 04:00 Room Air 04/17/22 23:58 Room Air 04/17/22 20:17 04/17/22 20:19 Room Air 04/17/22 20:19 99 Room Air 04/17/22 20:04 Room Air Laboratory Results 04/18/22 04/18/22 04/17/22 Range/Units 04:25 04:25 17:46 WBC 4.94 (4.8-10.8) K/ul RBC 3.70 L (4.20-5.40) M/uL Hgb 13.1 (12.0-16.0) g/dl Hct 38.3 (37.0-47.0) % MCV 103.5 H (80.0-100.0) fL MCH 35.4 H (25.0-34.0) pg MCHC 34.2 (32.0-36.0) g/dL RDW Std Deviation 47.1 H (36.4-46.3) fL RDW Coeff of Ashley 12.4 (11.5-14.5) % Plt Count 177 (130-400) K/uL MPV 10.2 (9.4-12.4) fL Immature Gran % (Auto) % Neut % (Auto) % Lymph % (Auto) % [place] % (Auto) % Eos % (Auto) % Baso % (Auto) % Neut # (Auto) (1.40-6.50) K/uL Lymph # (Auto) (1.2-3.4) K/uL [place] # (Auto) (0.11-0.59) K/uL Eos # (Auto) (0-0.50) K/uL Baso # (Auto) (0-0.2) K/uL Immature Gran # (Auto) (0.01-0.20) K/uL PT (9.0-12.0) Seconds INR (0.9-1.1) APTT (21.0-31.0) Seconds PTT Ratio Sodium 138 (136-145) mmol/L Potassium 4.7 D (3.5-5.1) mmol/L Chloride 109 H (98-107) mmol/L Carbon Dioxide 29 (21-32) mmol/L Anion Gap 0 L (3-11) BUN 11 (6-23) mg/dl Creatinine 0.79 (0.6-1.2) mg/dl Est Cr Clr Drug Dosing 95.5 ml/min Est GFR ( Amer) 108.5 ml/min Est GFR (Non-Af Amer) 93.6 ml/min BUN/Creatinine Ratio 13.9 (10-20) Glucose 107 H (70-99(Fasting)) mg/dl Calcium 8.9 (8.5-10.1) mg/dl Phosphorus 4.0 (2.5-4.9) mg/dl Magnesium 2.0 (1.7-2.4) mg/dl Total Bilirubin 0.7 (0.2-1.0) mg/dl AST 38 (13-39) U/L ALT 31 (7-52) U/L Alkaline Phosphatase 49 (34-104) U/L Total Protein 6.9 (6.0-8.3) gm/dl Albumin 4.0 (3.4-5.0) gm/dl Globulin 2.9 (2.5-4.0) gm/dl Albumin/Globulin Ratio 1.4 (0.9-2) Lipase (11-82) U/L Vitamin B12 (180-914) pg/ml Folate (>5.38) ng/ml TSH (0.300-4.500) uIu/ml Urine Color Urine Appearance (Clear) Urine pH (4.5-7.5) Ur Specific [place] (1.000-1.030) Urine Protein (Negative) Urine Glucose (UA) (Negative) Urine Ketones (Negative) Urine Blood (Negative) Urine Nitrite (Negative) Urine Bilirubin (Negative) Urine Urobilinogen (Negative) Ur Leukocyte Esterase (Negative) Urine WBC (Auto) (0-5) /hpf Urine RBC (Auto) (0-4) /hpf U Hyaline Cast (Auto) (0-5) /lpf U Epithel Cells (Auto) (0-5) /lpf Urine Bacteria (Auto) (Negative) Urine Test Negative (Negative) Ethyl Alcohol mg/dL (<10.0) mg/dl SARS-CoV-2, RNA, NAAT (NEGATIVE) 04/17/22 04/17/22 04/17/22 Range/Units 17:46 16:00 16:00 WBC (4.8-10.8) K/ul RBC (4.20-5.40) M/uL Hgb (12.0-16.0) g/dl Hct (37.0-47.0) % MCV (80.0-100.0) fL MCH (25.0-34.0) pg MCHC (32.0-36.0) g/dL RDW Std Deviation (36.4-46.3) fL RDW Coeff of Ashley (11.5-14.5) % Plt Count (130-400) K/uL MPV (9.4-12.4) fL Immature Gran % (Auto) % Neut % (Auto) % Lymph % (Auto) % [place] % (Auto) % Eos % (Auto) % Baso % (Auto) % Neut # (Auto) (1.40-6.50) K/uL Lymph # (Auto) (1.2-3.4) K/uL [place] # (Auto) (0.11-0.59) K/uL Eos # (Auto) (0-0.50) K/uL Baso # (Auto) (0-0.2) K/uL Immature Gran # (Auto) (0.01-0.20) K/uL PT (9.0-12.0) Seconds INR (0.9-1.1) APTT (21.0-31.0) Seconds PTT Ratio Sodium (136-145) mmol/L Potassium (3.5-5.1) mmol/L Chloride (98-107) mmol/L Carbon Dioxide (21-32) mmol/L Anion Gap (3-11) BUN (6-23) mg/dl Creatinine (0.6-1.2) mg/dl Est Cr Clr Drug Dosing ml/min Est GFR ( Amer) ml/min Est GFR (Non-Af Amer) ml/min BUN/Creatinine Ratio (10-20) Glucose (70-99(Fasting)) mg/dl Calcium (8.5-10.1) mg/dl Phosphorus (2.5-4.9) mg/dl Magnesium (1.7-2.4) mg/dl Total Bilirubin (0.2-1.0) mg/dl AST (13-39) U/L ALT (7-52) U/L Alkaline Phosphatase (34-104) U/L Total Protein (6.0-8.3) gm/dl Albumin (3.4-5.0) gm/dl Globulin (2.5-4.0) gm/dl Albumin/Globulin Ratio (0.9-2) Lipase (11-82) U/L Vitamin B12 (180-914) pg/ml Folate (>5.38) ng/ml TSH 3.604 (0.300-4.500) uIu/ml Urine Color Yellow Urine Appearance Cloudy A (Clear) Urine pH 7.5 (4.5-7.5) Ur Specific [place] 1.012 (1.000-1.030) Urine Protein Negative (Negative) Urine Glucose (UA) Negative (Negative) Urine Ketones Negative (Negative) Urine Blood Negative (Negative) Urine Nitrite Negative (Negative) Urine Bilirubin Negative (Negative) Urine Urobilinogen Negative (Negative) Ur Leukocyte Esterase Trace H (Negative) Urine WBC (Auto) 10-30 H (0-5) /hpf Urine RBC (Auto) 0-4 (0-4) /hpf U Hyaline Cast (Auto) 1-5 (0-5) /lpf U Epithel Cells (Auto) >30 H (0-5) /lpf Urine Bacteria (Auto) 1+ H (Negative) Urine Test (Negative) Ethyl Alcohol mg/dL (<10.0) mg/dl SARS-CoV-2, RNA, NAAT NEGATIVE (NEGATIVE) 04/17/22 04/17/22 04/17/22 Range/Units 16:00 16:00 16:00 WBC 6.15 (4.8-10.8) K/ul RBC 4.02 L (4.20-5.40) M/uL Hgb 14.3 (12.0-16.0) g/dl Hct 40.2 (37.0-47.0) % MCV 100.0 (80.0-100.0) fL MCH 35.6 H (25.0-34.0) pg MCHC 35.6 (32.0-36.0) g/dL RDW Std Deviation 46.0 (36.4-46.3) fL RDW Coeff of Ashley 12.4 (11.5-14.5) % Plt Count 201 (130-400) K/uL MPV 10.5 (9.4-12.4) fL Immature Gran % (Auto) 0.3 % Neut % (Auto) 70.9 % Lymph % (Auto) 20.3 % [place] % (Auto) 5.7 % Eos % (Auto) 2.3 % Baso % (Auto) 0.5 % Neut # (Auto) 4.36 (1.40-6.50) K/uL Lymph # (Auto) 1.25 (1.2-3.4) K/uL [place] # (Auto) 0.35 (0.11-0.59) K/uL Eos # (Auto) 0.14 (0-0.50) K/uL Baso # (Auto) 0.03 (0-0.2) K/uL Immature Gran # (Auto) 0.02 (0.01-0.20) K/uL PT 10.7 (9.0-12.0) Seconds INR 1.0 (0.9-1.1) APTT 25.3 (21.0-31.0) Seconds PTT Ratio 0.9 Sodium (136-145) mmol/L Potassium (3.5-5.1) mmol/L Chloride (98-107) mmol/L Carbon Dioxide (21-32) mmol/L Anion Gap (3-11) BUN (6-23) mg/dl Creatinine (0.6-1.2) mg/dl Est Cr Clr Drug Dosing ml/min Est GFR ( Amer) ml/min Est GFR (Non-Af Amer) ml/min BUN/Creatinine Ratio (10-20) Glucose (70-99(Fasting)) mg/dl Calcium (8.5-10.1) mg/dl Phosphorus (2.5-4.9) mg/dl Magnesium (1.7-2.4) mg/dl Total Bilirubin (0.2-1.0) mg/dl AST (13-39) U/L ALT (7-52) U/L Alkaline Phosphatase (34-104) U/L Total Protein (6.0-8.3) gm/dl Albumin (3.4-5.0) gm/dl Globulin (2.5-4.0) gm/dl Albumin/Globulin Ratio (0.9-2) Lipase (11-82) U/L Vitamin B12 (180-914) pg/ml Folate (>5.38) ng/ml TSH (0.300-4.500) uIu/ml Urine Color Urine Appearance (Clear) Urine pH (4.5-7.5) Ur Specific [place] (1.000-1.030) Urine Protein (Negative) Urine Glucose (UA) (Negative) Urine Ketones (Negative) Urine Blood (Negative) Urine Nitrite (Negative) Urine Bilirubin (Negative) Urine Urobilinogen (Negative) Ur Leukocyte Esterase (Negative) Urine WBC (Auto) (0-5) /hpf Urine RBC (Auto) (0-4) /hpf U Hyaline Cast (Auto) (0-5) /lpf U Epithel Cells (Auto) (0-5) /lpf Urine Bacteria (Auto) (Negative) Urine Test (Negative) Ethyl Alcohol mg/dL < 10.0 (<10.0) mg/dl SARS-CoV-2, RNA, NAAT (NEGATIVE) 04/17/22 04/17/22 Range/Units 16:00 16:00 WBC (4.8-10.8) K/ul RBC (4.20-5.40) M/uL Hgb (12.0-16.0) g/dl Hct (37.0-47.0) % MCV (80.0-100.0) fL MCH (25.0-34.0) pg MCHC (32.0-36.0) g/dL RDW Std Deviation (36.4-46.3) fL RDW Coeff of Ashley (11.5-14.5) % Plt Count (130-400) K/uL MPV (9.4-12.4) fL Immature Gran % (Auto) % Neut % (Auto) % Lymph % (Auto) % [place] % (Auto) % Eos % (Auto) % Baso % (Auto) % Neut # (Auto) (1.40-6.50) K/uL Lymph # (Auto) (1.2-3.4) K/uL [place] # (Auto) (0.11-0.59) K/uL Eos # (Auto) (0-0.50) K/uL Baso # (Auto) (0-0.2) K/uL Immature Gran # (Auto) (0.01-0.20) K/uL PT (9.0-12.0) Seconds INR (0.9-1.1) APTT (21.0-31.0) Seconds PTT Ratio Sodium 140 (136-145) mmol/L Potassium 3.8 (3.5-5.1) mmol/L Chloride 105 (98-107) mmol/L Carbon Dioxide 29 (21-32) mmol/L Anion Gap 6 (3-11) BUN 9 (6-23) mg/dl Creatinine 0.62 (0.6-1.2) mg/dl Est Cr Clr Drug Dosing 121.7 ml/min Est GFR ( Amer) 130.7 ml/min Est GFR (Non-Af Amer) 112.8 ml/min BUN/Creatinine Ratio 14.5 (10-20) Glucose 93 (70-99(Fasting)) mg/dl Calcium 9.5 (8.5-10.1) mg/dl Phosphorus (2.5-4.9) mg/dl Magnesium (1.7-2.4) mg/dl Total Bilirubin 0.7 (0.2-1.0) mg/dl AST 50 H (13-39) U/L ALT 38 (7-52) U/L Alkaline Phosphatase 53 (34-104) U/L Total Protein 8.0 (6.0-8.3) gm/dl Albumin 4.6 (3.4-5.0) gm/dl Globulin 3.4 (2.5-4.0) gm/dl Albumin/Globulin Ratio 1.4 (0.9-2) Lipase 36 (11-82) U/L Vitamin B12 526 (180-914) pg/ml Folate 5.18 L (>5.38) ng/ml TSH (0.300-4.500) uIu/ml Urine Color Urine Appearance (Clear) Urine pH (4.5-7.5) Ur Specific [place] (1.000-1.030) Urine Protein (Negative) Urine Glucose (UA) (Negative) Urine Ketones (Negative) Urine Blood (Negative) Urine Nitrite (Negative) Urine Bilirubin (Negative) Urine Urobilinogen (Negative) Ur Leukocyte Esterase (Negative) Urine WBC (Auto) (0-5) /hpf Urine RBC (Auto) (0-4) /hpf U Hyaline Cast (Auto) (0-5) /lpf U Epithel Cells (Auto) (0-5) /lpf Urine Bacteria (Auto) (Negative) Urine Test (Negative) Ethyl Alcohol mg/dL (<10.0) mg/dl SARS-CoV-2, RNA, NAAT (NEGATIVE) Medications Administered Current Inpatient Medications Acetaminophen (Acetaminophen 325 Mg Tab) 650 mg PO Q4H PRN PRN Reason: Pain or Fever Stop: 05/17/22 19:47 Folic Acid (Folic Acid 1 Mg Tab) 1 mg PO QAM MARIA ANTONIA Stop: 05/18/22 08:59 Gabapentin (Gabapentin 600 Mg Tab) 600 mg PO Q24H MARIA ANTONIA Stop: 04/21/22 12:01 Gabapentin (Gabapentin 600 Mg Tab) 600 mg PO Q12H MARIA ANTONIA Stop: 04/20/22 12:01 Gabapentin (Gabapentin 600 Mg Tab) 600 mg PO Q8H MARIA ANTONIA Stop: 04/19/22 14:01 Gabapentin (Gabapentin 600 Mg Tab) 600 mg PO Q6H MARIA ANTONIA Stop: 04/18/22 12:01 Last Admin: 04/18/22 05:27 Dose: 600 mg Thiamine HCl 100 mg/ Syringe 10 mls @ 2 mls/min IV QAM [facility] Stop: 05/18/22 08:59 Lorazepam (Lorazepam 2 Mg/1 Ml Vial) 3 mg IV ONCE PRN; Protocol PRN Reason: EtOH Withdrawal AWSS Score 10+ Lorazepam (Lorazepam 2 Mg/1 Ml Vial) 2 mg IV UD PRN; Protocol PRN Reason: EtOH Withdrawal AWSS Score 8,9 Stop: 05/17/22 19:47 Lorazepam (Lorazepam 2 Mg/1 Ml Vial) 1 mg IV UD PRN; Protocol PRN Reason: EtOH Withdrawal AWSS Score 6,7 Stop: 05/17/22 19:47 Miscellaneous (Remove Nicoderm Patch) 1 each N/A DAILY@[id number] [facility] Stop: 05/18/22 08:58 Ondansetron HCl (Ondansetron Inj 2 Mg/Ml 2 Ml Vial) 4 mg IV Q6H PRN PRN Reason: Nausea Stop: 05/17/22 19:47 Polyethylene Glycol (Polyethylene (Miralax) 17 Gm Pack) 17 gm PO DAILY PRN PRN Reason: Constipation Stop: 05/17/22 19:47
--- NOTE | 2022-04-18 07:45 | Electrocardiogram Report ---
Test Reason : Blood Pressure : / mmHG Vent. Rate : 104 BPM Atrial Rate : 104 BPM P-R Int : 134 ms QRS Dur : 072 ms QT Int : 340 ms P-R-T Axes : 073 077 071 degrees QTc Int : 447 ms Sinus tachycardia Otherwise normal ECG When compared with ECG of 10-DEC-2021 03:41, No significant change was found Confirmed by Farhan Cervantes ([id number]) on 04/18/2022 7:45:04 AM Referred By: Confirmed By:Farhan Cervantes
[2022-04-18] MEDS ORDERED: FOLIC ACID 1 MG TAB PO SCH (09:00)
[2022-04-18] MEDS ORDERED: THIAMINE HCL 100 MG in SYRINGE 9 ML IV SCH (09:00)
[2022-04-18] MEDS: guaiFENesin 600 MG TABCR PO SCH ×2 (10:51→20:53)
[2022-04-18] MEDS ORDERED: NICOTINE 14 MG/24 HR PATCH TD SCH (12:15)
[2022-04-18] MEDS: LORazepam 2 MG/1 ML VIAL IV PRN ×2 (12:18→16:34)
[2022-04-18] MEDS ORDERED: PANTOprazole 40 MG TAB PO SCH (20:00)
[2022-04-18] MEDS ORDERED: diazePAM 2 MG TABLET PO PRN (20:21)
[2022-04-18] MEDS ORDERED: GABAPENTIN 600 MG TAB PO SCH (22:00)
--- NOTE | 2022-04-19 07:06 | Communication Note ---
Date of Service: April 19, 2022 Last night patient wanted to sign out AMA. Saw the patient. Family in room.Patient was alert and awake and answering appropriately. Advised to stay overnight and get ct scan abd/pelvis as she was complaining abdominal pain. She was adamant for discharge and says she will follow with her PCP and signed out AMA.
--- NOTE | 2022-04-19 08:15 | Psychiatric Consultation ---
Date of Consultation April 19, 2022 Impression / Recommendations Impression Patient was seen last evening by psychiatric liason RN and provided with local mental health and substance use resources. She denied any SI, HI or psychosis at that time. Unfortunately last night she decided to leave AMA so she is not able to be seen today for full psychiatric consult for recommendations regarding substance use and anxiety. Psych History Allergies Allergy/AdvReac Type Severity Reaction Status Date / Time ciprofloxacin Allergy Intermediate swelling Verified 12/10/21 03:17 estrogens, conjugated Allergy Intermediate rash, Verified 12/10/21 03:17 swelling medroxyprogesterone Allergy Intermediate rash, Verified 12/10/21 03:17 swelling prednisone Allergy Intermediate rash , Verified 12/10/21 03:17 swelling Home Medications Medication Instructions Recorded Confirmed Type dextroamphetamine-amphetamine 10 10 mg PO DAILY 12/10/21 04/17/22 History mg tablet dextroamphetamine-amphetamine 15 15 mg PO BID 12/10/21 04/17/22 History mg tablet hydroxyzine HCl 25 mg tablet 25 mg PO BID PRN Anxiety 12/10/21 04/17/22 History sertraline 100 mg tablet (Zoloft) 100 mg PO DAILY 12/10/21 04/17/22 History Patient History Medical History Adrenal insufficiency almost certainly NOT but uses hydrocortisone PRN "ill" Adult ADHD Anxiety Chronic headaches Hypothyroidism MTHFR gene mutation No personal hx DVT/PE; not on AC Premature ovarian failure Tobacco use Surgical History History of colonoscopy History of cryosurgery History of esophagogastroduodenoscopy (EGD) History of hysteroscopy D&C, hysteroscopy, polypectomy: 06/28/17: LMA#4 at [facility] S/P thyroidectomy Right thyroidectomy for benign nodule Family History (Updated 04/17/22 @ 17:51 by Simin Brown PA-C) Father Aortic dissection Dyslipidemia Hypertension Mother COPD (chronic obstructive pulmonary disease) Hypertension Hypothyroidism Other Cancer Social History (Updated 04/17/22 @ 17:52 by Simin Brown PA-C) Smoking Status: Current every day smoker Tobacco Type: Cigarettes Cigarettes Per Day: 1 pack per day; Tobacco Cessation Education Requested by Patient: No Hx Alcohol Use: Yes Hx Substance Use: Yes Non-Prescribed Medications: Marijuana Last Used Substance: Days (ago) Last Used Substance Other:: 3 days ago Preferred Language: Nigerien Communication Ability: Effective Pellet Post Inspector Required: No marital status: Current Living Situation: Family Current Living Situation Comment: Lives with parents current occupational status: employed Other Information That Helps Us Care for You: No Feels Safe at Home: Yes Safety Concerns: Feels Safe At This Time Assistive Devices: Contacts and Glasses Physical Exam Vital Signs (Past 24 Hours): Last Vital Signs Temp 36.7 C 04/18/22 20:09 Pulse 98 H 04/18/22 20:09 Resp 19 04/18/22 20:09 BP 137/98 04/18/22 20:09 Pulse Ox 97 04/18/22 20:09 O2 Del Method Room Air 04/18/22 20:09 Coding Level of Care Code None Diagnoses
[2022-04-20] MEDS ORDERED: GABAPENTIN 600 MG TAB PO SCH
[2022-04-21] MEDS ORDERED: GABAPENTIN 600 MG TAB PO SCH (12:00)
--- NOTE | 2022-04-27 21:45 | Discharge Summary ---
Date of Service April 19, 2022 Admission HPI Per Admitting Provider Patient is a 41-year-old female with PMH anxiety, depression, PTSD, ADHD, hypothyroidism, ovarian failure, secondary adrenal insufficiency, tobacco use presented to ER for alcohol withdrawal. Patient reports has been heavily drinking for the past 2 years, with worsening over the past several months. Drinks 10-20 drinks hard liquor a day. Last drink was 2 AM today. Patient reports that she wants to stop drinking. She is interested in rehab. Today is feeling shaky. Denies history of alcohol withdrawal, DTs, seizures. States tried to quit once by decreasing her alcohol intake. Reports has not had health insurance so has not been taking her thyroid and estradiol medications for over a year. Has not been taking her Adderall, sertraline for 2 months. Has not been seen by PCP or endocrinology since 2019. Denies fever/chills, diaphoresis, N/V/D/C, GIFFORD, dizziness, syncope, vision changes, neck pain, CP, SOB, orthopnea, palpitations, cough, sore throat, choking, otalgia, rhinorrhea, abdominal pain, paresthesias, weakness, extremity weakness, extremity edema, rashes, urinary symptoms. Admission Exam Per Admitting Provider General: no acute distress, WDWN Head: normocephalic, atraumatic Eyes: conjunctiva non-injected, anicteric ENT: normal inspection external ears, nose, mucous membranes moist Neck: supple, trachea midline Lungs: clear, no respiratory distress, no wheezing/rhonchi/rales CV: RRR, no murmur, no pretibial edema Abd: normal BS, soft, non-tender Ext: no cyanosis, no calf tenderness Neuro: A&O x 3, no focal deficits noted, normal affect Skin: warm, dry Principal Diagnosis Alcohol abuse/ alcohol withdrawal Discharge Exam General: no acute distress, WDWN Head: normocephalic, atraumatic Eyes: conjunctiva non-injected, anicteric ENT: normal inspection external ears, nose, mucous membranes moist Neck: supple Lungs: clear, no respiratory distress, no wheezing/rhonchi/rales CV: RRR, no murmur, no pretibial edema Abd: normal BS, soft, non-tender Ext: moves extremities Neuro: A&O x 3, no focal deficits noted, normal affect, moves extremities Skin: warm, dry Discharge Data Allergies Allergy/AdvReac Type Severity Reaction Status Date / Time ciprofloxacin Allergy Intermediate swelling Verified 12/10/21 03:17 estrogens, conjugated Allergy Intermediate rash, Verified 12/10/21 03:17 swelling medroxyprogesterone Allergy Intermediate rash, Verified 12/10/21 03:17 swelling prednisone Allergy Intermediate rash , Verified 12/10/21 03:17 swelling Consultations 04/17/22 17:01 ED Decision to Admit Stat 04/18/22 19:57 Consult Psychiatry Routine Hospital Course (1) Alcohol withdrawal: Patient is a 41-year-old female with PMH anxiety, depression, PTSD, ADHD, hypothyroidism, ovarian failure, secondary adrenal insufficiency, tobacco use presented to ER for alcohol withdrawal. 10-20 drinks/day. Last consumed at 0200 04/17/22. In ER tachycardic in low 100's, other vital stable. EtOH level <10, other labs unremarkable In ER initially tremulous. Given Valium 5mg IV, Librium 50mg po, Banana bag Admitted to telemetry Alcohol withdrawal protocol with gabapentin, as needed Ativan Alcohol cessation recommended Patient wants to quit and interested in rehab CBC, CMP, magnesium, phosphorus labs in a.m. lipase normal on admission, ordered re-check as pt had some epigastric discomfort,also started ppi (2) Hypothyroidism: Autoimmune hypothyroidism. S/P partial thyroidectomy TSH: 3.6 Previously on levothyroxine. Patient has not been taking for several years secondary to lost to follow-up Will need outpatient follow up (3) Premature ovarian failure: Previously following with [facility] and was on estradiol Has not been taking estradiol Will need outpatient follow up (4) Adrenal insufficiency: Question of minor primary adrenal insufficiency Previously followed with [facility] endocrinology. Has not been seen since 2019 Will need outpatient follow up (5) Adult ADHD: (6) Anxiety: Follows with psychiatrist-Dr. Santino Tate Previously on sertraline, Adderall, hydroxyzine as needed. Has not taken for past 2 months Will need continued outpatient follow up (7) Tobacco use: Smoking cessation encouraged Nicotine patch Follows with Dr Yovany Kramer for routine care Pt left AMA 04/18/2022 evening. Total Time Total Time Spent Total Time Spent (In Minutes): 0 Discharge Plan Discharge Items Patient Disposition: Against Medical Advice Reason For Visit: ETOH WITHDRAWAL Activity: As commented below Activity Comment: as per pcp Non-emergency contact: Primary Care Provider Follow-up/Referrals: Yovany Kramer, [Primary Care Provider] - Pending Studies at Discharge: No Stand-Alone Forms: My [facility] [employer], Smoking Cessation Medications and DC Order Prescriptions: Continued dextroamphetamine-amphetamine 10 mg tablet 10 mg PO DAILY Rx Instructions: TAKES AT 1600 dextroamphetamine-amphetamine 15 mg tablet 15 mg PO BID Rx Instructions: TAKES QAM & NOON. sertraline [Zoloft] 100 mg tablet 100 mg PO DAILY hydroxyzine HCl 25 mg tablet 25 mg PO BID PRN (Reason: Anxiety) Discharge Orders: Left Against Medical Advice (Routine); Ordered 04/18/22 Ordered By: Lawrence Armstrong Admission Data Admit Date/Time: 04/17/22 17:17 Attending Provider: Lonnie Christensen Admit Provider: Lonnie Christensen Primary Care Provider: Yovany Kramer Other Providers: Lonnie Christensen ; Mary Arvizu ; Marisabel Portillo ; Surendra Calix
== END 2022-04-18 20:53 | disposition left against medical advice (07) | DRG 894 ==
LOC: ED 14:55 → EDINP 17:17 → 2S 19:49

== ENCOUNTER 2023-11-29 14:52 | Inpatient (IN) ==
[2023-11-29 15:32] LABS: Appearance Urine Clear (Clear); Bilirubin Urine Negative (Negative); Blood Urine Negative (Negative); Color Urine Yellow; Glucose Urine UA Negative (Negative); Ketones Urine Negative (Negative); Leukocyte Esterase Urine Negative (Negative); Nitrite Urine Negative (Negative); Protein Urine Negative (Negative); Specific Gravity Urine 1.018 (1.000-1.030); Urobilinogen Urine Negative (Negative); pH Urine 6.5 (4.5-7.5)
[2023-11-29 15:48] LABS: Basophils # (auto) 0.04 K/uL (0.00-0.20); Basophils % (auto) 0.6 %; Eosinophils # (auto) 0.11 K/uL (0.00-0.50); Eosinophils % (auto) 1.6 %; Hematocrit (blood only) 39.1 % (37.0-47.0); Hemoglobin 13.4 g/dl (12.0-16.0); Immature Granulocytes # (auto) 0.01 K/uL (0.01-0.20); Immature Granulocytes % (auto) 0.1 %; Lymphocytes # (auto) 1.62 K/uL (1.20-3.40); Lymphocytes % (auto) 23.9 %; Mean Corpuscular Hemoglobin 33.3 pg (25.0-34.0); Mean Corpuscular Hgb Conc 34.3 g/dL (32.0-36.0); Mean Platelet Volume 10.1 fL (9.4-12.4); Monocytes # (auto) 0.36 K/uL (0.11-0.59); Monocytes % (auto) 5.3 %; Neutrophils # (auto) 4.65 K/uL (1.40-6.50); Neutrophils % (auto) 68.5 %; Platelet Count 256 K/uL (130-400); RDW Coefficient of Variation 12.7 % (11.5-14.5); RDW Standard Deviation 45.6 fL (36.4-46.3); Red Blood Count 4.03 M/uL (4.20-5.40); White Blood Count 6.79 K/ul (4.8-10.8)
[2023-11-29 15:56] LABS: Amphetamines+Metham, Urine Pos (Neg); Barbiturates, Urine Neg (Neg); Benzodiazepine, Urine Neg (Neg); Cocaine, Urine Pos (Neg); Fentanyl, Urine Neg (Neg); MDMA (Ecstacy), Urine Pos (Neg); Marijuana, Urine Pos (Neg); Methadone, Urine Neg (Neg); Opiate, Urine Neg (Neg); Phencyclidine, Urine Neg (Neg)
[2023-11-29 16:04] LABS: Albumin Globulin Ratio 1.5 (0.9-2); Albumin Level 4.4 gm/dl (3.4-5.0); BUN Creatinine Ratio 16.9 (10-20); Bilirubin,Total 0.5 mg/dl (0.2-1.0); Calcium 9.6 mg/dl (8.6-10.3); Creatinine Clr Calc Pharmacy 112.7 ml/min; Potassium 3.8 mmol/L (3.5-5.1); Total Protein 7.4 gm/dl (6.0-8.3)
[2023-11-29 16:17] LABS: Thyroid Stimulating Hormone 2.198 uIu/ml (0.300-4.500)
--- NOTE | 2023-11-29 16:22 | Emergency Department Note ---
History of Present Illness General Chief complaint: Mental Health Evaluation Stated complaint: MENTAL HEALTH EVAL Time Seen by Provider: 11/29/23 15:16 History of Present Illness Provider complaint: Mental health evaluation Maximum Pain Intensity: 5 43-year-old female presents emergency department for mental health evaluation. Patient states she is depressed and suicidal and wants to kill her self by drive herself into a tree. Patient states she has no access to any firearms. No drugs or alcohol. No chance of . Home Medications Medication Instructions Recorded Confirmed Type dextroamphetamine-amphetamine 10 10 mg PO TID 11/29/23 11/29/23 History mg tablet (Adderall) levothyroxine 137 mcg tablet 137 mcg PO DAILY 11/29/23 11/29/23 History (Synthroid) Allergies Allergy/AdvReac Type Severity Reaction Status Date / Time ciprofloxacin Allergy Intermediate swelling Verified 12/10/21 03:17 estrogens, conjugated Allergy Intermediate rash, Verified 12/10/21 03:17 swelling medroxyprogesterone Allergy Intermediate rash, Verified 12/10/21 03:17 swelling prednisone Allergy Intermediate rash , Verified 12/10/21 03:17 swelling Past Med/Surg History Problem List (Updated 11/29/23 @ 18:56 by Dio Tomlinson MD) Depression with suicidal ideation (Acute) Acute dehydration (Acute) Alcohol withdrawal (Acute) Tobacco use Hypothyroidism Alcohol withdrawal Adrenal insufficiency almost certainly NOT but uses hydrocortisone PRN "ill" Adult ADHD Anxiety MTHFR gene mutation No personal hx DVT/PE; not on AC Premature ovarian failure Pelvic fullness in female History of hysteroscopy D&C, hysteroscopy, polypectomy: 06/28/17: LMA#4 at [facility] History of esophagogastroduodenoscopy (EGD) History of colonoscopy MTHFR mutation Low bone mass Vitamin D deficiency IBS (irritable bowel syndrome) Medical History Chronic headaches Surgical History S/P thyroidectomy Right thyroidectomy for benign nodule History of cryosurgery Family History Father Aortic dissection Dyslipidemia Hypertension Mother COPD (chronic obstructive pulmonary disease) Hypertension Hypothyroidism Other Cancer Social History Smoking Status: Current every day smoker Tobacco Type: Cigarettes Cigarettes Per Day: 1 pack per day; Hx Alcohol Use: Yes Hx Substance Use: Yes Non-Prescribed Medications: Marijuana Last Used Substance: Days (ago) Last Used Substance Other:: 3 days ago Preferred Language: Japanese Communication Ability: Effective Blower Operator Required: No marital status: Current Living Situation: Family Current Living Situation Comment: Lives with parents current occupational status: employed Feels Safe at Home: Yes Gender Identity: Female Assistive Devices: Contacts and Glasses Physical Exam Vital Signs Vital Signs - 24 hr 11/29/23 14:56 11/29/23 16:34 11/29/23 18:50 Temperature 36.7 C Temperature Source Temporal Artery Scan Pulse Rate 106 H Pulse Rate [Right Finger] 102 H Respiratory Rate 16 20 Respiratory Effort / Characteristics Non-Labored Spontaneous Non-Labored Spontaneous Respiratory Depth Normal Normal Respiratory Pattern Regular Regular Blood Pressure 165/95 H Blood Pressure [Right Arm] 144/95 H Blood Pressure Mean 118 Blood Pressure Mean [Right Arm] 111 Pulse Oximetry 100 100 Oxygen Delivery Method Room Air Room Air Room Air Sepsis Recent Fever Within 48 Hours No Sepsis New/Unexplained Change in Mental Status N/A Sepsis Action Taken by Nursing No Action Required Physical Exam GENERAL: oriented to person, place, and time. appears well-developed and well- nourished. HENT: Exam performed. - Head: Normocephalic and atraumatic. NEURO: Motor and sensation grossly intact. SKIN: Skin is warm and dry. He is not diaphoretic. PSYCH: Patient is tearful depressed and has suicidal ideation. Course Course 1516: The patient was evaluated in room A8. A complete history and physical exam was performed 1621: Patient medically cleared. Awaiting psychiatric valuation and placement. 1856: Patient accepted to 3 S. Medical Decision Making Laboratory Data Attestation: I reviewed the patient's lab results. 11/29/23 15:31 11/29/23 15:31 Lab Results 11/29/23 11/29/23 11/29/23 Range/Units 15:05 15:20 15:31 WBC 6.79 (4.8-10.8) K/ul RBC 4.03 L (4.20-5.40) M/uL Hgb 13.4 (12.0-16.0) g/dl Hct 39.1 (37.0-47.0) % MCV 97.0 (80.0-100.0) fL MCH 33.3 (25.0-34.0) pg MCHC 34.3 (32.0-36.0) g/dL RDW Std Deviation 45.6 (36.4-46.3) fL RDW Coeff of Ashley 12.7 (11.5-14.5) % Plt Count 256 (130-400) K/uL MPV 10.1 (9.4-12.4) fL Immature Gran % (Auto) 0.1 % Neut % (Auto) 68.5 % Lymph % (Auto) 23.9 % [place] % (Auto) 5.3 % Eos % (Auto) 1.6 % Baso % (Auto) 0.6 % Neut # (Auto) 4.65 (1.40-6.50) K/uL Lymph # (Auto) 1.62 (1.20-3.40) K/uL Appling # (Auto) 0.36 (0.11-0.59) K/uL Eos # (Auto) 0.11 (0.00-0.50) K/uL Baso # (Auto) 0.04 (0.00-0.20) K/uL Immature Gran # (Auto) 0.01 (0.01-0.20) K/uL Sodium 139 (136-145) mmol/L Potassium 3.8 (3.5-5.1) mmol/L Chloride 105 (98-107) mmol/L Carbon Dioxide 28 (21-32) mmol/L Anion Gap 6 (3-11) BUN 11 (6-23) mg/dl Creatinine 0.65 (0.6-1.2) mg/dl Est Cr Clr Drug Dosing 112.7 ml/min eGFR 112.66 BUN/Creatinine Ratio 16.9 (10-20) Glucose 186 H (70-99(Fasting)) mg/dl Calcium 9.6 (8.6-10.3) mg/dl Total Bilirubin 0.5 (0.2-1.0) mg/dl AST 22 (13-39) U/L ALT 14 (7-52) U/L Alkaline Phosphatase 45 (34-104) U/L Total Protein 7.4 (6.0-8.3) gm/dl Albumin 4.4 (3.4-5.0) gm/dl Globulin 3.0 (2.5-4.0) gm/dl Albumin/Globulin Ratio 1.5 (0.9-2) TSH 2.198 (0.300-4.500) uIu/ml Urine Color Urine Appearance (Clear) Urine pH (4.5-7.5) Ur Specific [place] (1.000-1.030) Urine Protein (Negative) Urine Glucose (UA) (Negative) Urine Ketones (Negative) Urine Blood (Negative) Urine Nitrite (Negative) Urine Bilirubin (Negative) Urine Urobilinogen (Negative) Ur Leukocyte Esterase (Negative) Urine Test Negative (Negative) Urine Opiates Screen (Neg) Ur Methadone, Qual (Neg) Urine Fentanyl Screen (Neg) Urine Barbiturates (Neg) Ur Phencyclidine (PCP) (Neg) U Amphetamin/Meth Scrn (Neg) MDMA (Ecstasy) Screen (Neg) U Benzodiazepines Scrn (Neg) Ur Cocaine Metabolite (Neg) U Marijuana (THC) Screen (Neg) Ethyl Alcohol mg/dL < 10.0 (<10.0) mg/dl SARS-CoV-2, RNA, NAAT NEGATIVE (NEGATIVE) 11/29/23 Range/Units Unknown WBC (4.8-10.8) K/ul RBC (4.20-5.40) M/uL Hgb (12.0-16.0) g/dl Hct (37.0-47.0) % MCV (80.0-100.0) fL MCH (25.0-34.0) pg MCHC (32.0-36.0) g/dL RDW Std Deviation (36.4-46.3) fL RDW Coeff of Ashley (11.5-14.5) % Plt Count (130-400) K/uL MPV (9.4-12.4) fL Immature Gran % (Auto) % Neut % (Auto) % Lymph % (Auto) % [place] % (Auto) % Eos % (Auto) % Baso % (Auto) % Neut # (Auto) (1.40-6.50) K/uL Lymph # (Auto) (1.20-3.40) K/uL [place] # (Auto) (0.11-0.59) K/uL Eos # (Auto) (0.00-0.50) K/uL Baso # (Auto) (0.00-0.20) K/uL Immature Gran # (Auto) (0.01-0.20) K/uL Sodium (136-145) mmol/L Potassium (3.5-5.1) mmol/L Chloride (98-107) mmol/L Carbon Dioxide (21-32) mmol/L Anion Gap (3-11) BUN (6-23) mg/dl Creatinine (0.6-1.2) mg/dl Est Cr Clr Drug Dosing ml/min eGFR BUN/Creatinine Ratio (10-20) Glucose (70-99(Fasting)) mg/dl Calcium (8.6-10.3) mg/dl Total Bilirubin (0.2-1.0) mg/dl AST (13-39) U/L ALT (7-52) U/L Alkaline Phosphatase (34-104) U/L Total Protein (6.0-8.3) gm/dl Albumin (3.4-5.0) gm/dl Globulin (2.5-4.0) gm/dl Albumin/Globulin Ratio (0.9-2) TSH (0.300-4.500) uIu/ml Urine Color Yellow Urine Appearance Clear (Clear) Urine pH 6.5 (4.5-7.5) Ur Specific [place] 1.018 (1.000-1.030) Urine Protein Negative (Negative) Urine Glucose (UA) Negative (Negative) Urine Ketones Negative (Negative) Urine Blood Negative (Negative) Urine Nitrite Negative (Negative) Urine Bilirubin Negative (Negative) Urine Urobilinogen Negative (Negative) Ur Leukocyte Esterase Negative (Negative) Urine Test (Negative) Urine Opiates Screen Neg (Neg) Ur Methadone, Qual Neg (Neg) Urine Fentanyl Screen Neg (Neg) Urine Barbiturates Neg (Neg) Ur Phencyclidine (PCP) Neg (Neg) U Amphetamin/Meth Scrn Pos H (Neg) MDMA (Ecstasy) Screen Pos H (Neg) U Benzodiazepines Scrn Neg (Neg) Ur Cocaine Metabolite Pos H (Neg) U Marijuana (THC) Screen Pos H (Neg) Ethyl Alcohol mg/dL (<10.0) mg/dl SARS-CoV-2, RNA, NAAT (NEGATIVE) [facility] Narrative 1516: The patient was evaluated in room A8. A complete history and physical exam was performed 1621: Patient medically cleared. Awaiting psychiatric valuation and placement. 1856: Patient accepted to 3 S. Impression & Plan Depression with suicidal ideation Discharge Plan Visit Data Chief Complaint: Mental Health Evaluation Stated Complaint: MENTAL HEALTH EVAL ED Provider: Dio Tomlinson Discharge Problem: Depression with suicidal ideation Patient Disposition: Admitted As Inpatient Discharge Instructions Interventions: ED Discharge Assessment Last Done: 11/29/23 18:50 Forms Stand Alone Forms: [facility], Suicide Prevention Resources Prescriptions Prescriptions: No Action dextroamphetamine-amphetamine [Adderall] 10 mg Tablet 10 mg PO TID Rx Instructions: administer doses at least 4-6 hours apart levothyroxine [Synthroid] 137 mcg Tablet 137 mcg PO DAILY Referrals Referrals: Yovany Kramer DO [Primary Care Provider] -
[2023-11-29 17:18] LABS: Pregnancy Test, Urine Negative (Negative)
[2023-11-29] MEDS ORDERED: SODIUM CHLORIDE 0.65% NA SOLN 45 ML (OCEAN) PRN (19:14)
[2023-11-29] MEDS ORDERED: MAGNESIUM HYDROXIDE SUSP 30 ML UDC PO PRN (19:14)
[2023-11-29] MEDS ORDERED: BISMUTH SUBSALICYLATE 262 MG CHEW PO PRN (19:14)
[2023-11-29] MEDS ORDERED: ALUMINUM/MAGNESIUM SUSP 30 ML UDC PO PRN (19:14)
[2023-11-29] MEDS ORDERED: hydrOXYzine HCl 25 MG TAB PO PRN (19:14)
[2023-11-29] MEDS ORDERED: LORazepam 1 MG TAB PO PRN ×4 (19:14→23:07)
[2023-11-29] MEDS ORDERED: ACETAMINOPHEN 325 MG TAB PO PRN (19:14)
[2023-11-29] MEDS: NICOTINE POLACRILEX 2 MG GUM MT PRN (20:31)
[2023-11-29] MEDS: hydrOXYzine HCl 25 MG TAB PO PRN (21:23)
[2023-11-29] MEDS ORDERED: Ativan PO Alcohol Withdrawal--Active Protocol PO PRN (23:06)
--- OUTSIDE RECORDS SUMMARY | 2023-11-30 01:54 | External Medical Summary | Summary of Care ---
Author Name Unknown Organization [facility] Address [address] [place] [address] Phone [phone] Care Team Providers Care Legal Transcriptionist Name Role Phone DuYovany agosto Primary Care Provider Reason for Visit * Reason Comments Acute Encounter Details Date Type Department Care Team (Late st Contact Info) Description 06/10/2023 2:40 PM EDT Telemedicine Family Practice [facility] [address] [place] [address] Pio Block DO [address] [place] [address] Acute sinusitis, recurrence not specified, unspecified location*; Encounter for screening mammogram for breast cancer Allergies Active Allergy Reactions Criticality Noted Date Comments Ciprofloxacin Edema Other Medium 06/22/2015 Edema and erythema of the hands Conj Estrog-Medroxyprogest Clive Other (Please comment),Rash High 07/24/2016 Breathing issues documented as of this encounter (statuses as of 06/10/2023) Medications Medication Sig Dispensed Refills Start Date End Date Status sertraline (ZOLOFT) 100 MG Tablet Take 150 mg by mouth daily. 0 Active Loratadine 10 MG CapIndications:takes as needed for allergy symptoms Take 10 mg by mouth. Indications: takes as needed for allergy symptoms 0 Active LORAzepam (ATIVAN) 0.5 MG TabletIndications:Anx iety,Posttraumatic stress disorder Take 1 Tab by mouth 2 times a day as needed for Anxiety. 30 Tab 0 10/22/2016 Active Magnesium 400 MG Capsule Take 400 mg by mouth daily. 0 Active Riboflavin 400 MG Capsule Take 400 mg by mouth daily. 0 Active Multiple Vitamins-Minerals (WOMENS MULTIVITAMIN) TABS Take by mouth. 0 Active Vitamin D, Ergocalciferol, 77024 units Capsule Take 50,000 Units by mouth daily. 0 Active hydrocortisone (CORTEF) 5 MG Tablet Take 1 Tab by mouth 2 times a day. 5 03/26/2017 Active SOLU-CORTEF 100 MG SOLR As needed 5 05/20/2017 Active Olopatadine HCl (PAZEO) 0.7 % SOLN Instill 1 Drop into eye daily as needed (allergic eye symptoms). 0 07/09/2017 Active amphetamine salt combo (ADDERALL) 10 MG Tablet 1 every AM noon and 4PM 0 03/12/2018 Active fluticasone (FLONASE) 50 MCG/ACT nasal spray ADMINISTER 2 SPRAYS INTO EACH NOSTRIL 2 TIMES A DAY. 16 mL 11 07/07/2018 Active albuterol HFA 108 (90 BASE) MCG/ACT inhalerIndications:Br onchitis, complicated INHALE 2 PUFFS BY MOUTH EVERY 4 HOURS NEEDED FOR COUGH, SHORTNESS OF BREATH OR WHEEZING. 1 Inhaler 1 08/25/2018 Active meclizine (ANTIVERT) 25 MG TabletIndications:Heladio tigo Take 1 Tab by mouth 3 times a day as needed for Dizziness. 21 Tab 0 08/30/2018 Active ondansetron ODT (ZOFRAN ODT) 4 MG TBDPIndications:Nause a Place 1 Tab on tongue every 8 hours as needed for Nausea. dissolve on tongue. 10 Tab 0 08/30/2018 Active Rizatriptan Benzoate 5 MG Tablet Take 1 Tab by mouth as needed for Migraine. May repeat in 2 hours if needed 10 Tab 11 09/06/2018 Active amLODIPine (NORVASC) 2.5 MG Tablet TAKE 1 TABLET BY MOUTH EVERY DAY 30 Tab 11 09/14/2018 Active ibuprofen (MOTRIN) 800 MG Tablet TAKE 1 TABLET BY MOUTH THREE TIMES A DAY 90 Tab 5 10/19/2018 Active Levothyroxine Sodium 125 MCG Oral Tablet (Synthroid)Indication s:Acquired hypothyroidism Take 1 Tab by mouth daily. (at least 30 min prior to breakfast or other meds) 30 Tab 11 12/18/2019 Active Estradiol 0.1 MG/24HR Transdermal Patch Twice WeeklyIndications:Sec ondary adrenal insufficiency (HCC),Ovarian failure APPLY 1 PATCH TO SKIN TWICE PER WEEK 8 Patch 5 03/20/2021 Active Amoxicillin-Pot Clavulanate 875-125 MG Oral Tablet (Augmentin)Indication s:Acute sinusitis, recurrence not specified, unspecified location Take 1 Tablet by mouth in the morning and 1 Tablet before bedtime. Do all this for 10 days. 20 Tablet 0 06/10/2023 06/20/2023 Active documented as of this encounter (statuses as of 06/10/2023) Active Problems Problem Noted Date Diagnosed Date Raynaud's disease without gangrene 03/22/2018 DDD (degenerative disc disease), cervical 2017 Mixed rhinitis 07/09/2017 Seasonal allergic rhinitis due to fungal spores 07/09/2017 Allergic conjunctivitis, bilateral 07/09/2017 Secondary adrenal insufficiency 04/23/2017 Chronic daily headache 01/15/2016 Ovarian failure 09/16/2015 Heterozygous MTHFR mutation C677T 05/06/2015 OCD (obsessive compulsive disorder) 10/21/2012 Attention deficit hyperactivity disorder (ADHD) 02/23/2011 Posttraumatic stress disorder 02/23/2011 Anxiety state 02/23/2011 Overview: ICD-10 update of inactive term Severe episode of recurrent major depressive dis order 02/23/2011 documented as of this encounter (statuses as of 06/10/2023) Resolved Problems Problem Noted Date Diagnosed Date Resolved Date Menopause 05/24/2015 07/27/2016 PTSD (post-traumatic stress disorder) 10/21/2012 07/27/2016 Routine general medical exam ination at a health care facility 10/21/2012 09/16/2015 Overview: Mar-Denisa Campbell counselor Dr Vinson-@[facility] Encounter for supervision of other normal 03/03/2006 05/25/2007 Overview: ICD-10 update of inactive term BIPOLAR AFF, DEPR-UNSPEC 04/22/200507/2012 Tobacco use disorder 04/22/2005 017 documented as of this encounter (statuses as of 06/10/2023) Immunizations Name Administration Dates Next Due PPD 01/02/2019, 8,10/20/2014,10/21 Pneumococcal Polysaccharide PPV23 (Pneumovax) 10/21/2012 Seasonal Influenza, PF, 6 M & above, IM , (FluLaval or Fluzone) 12/18/2019,12/28/2017 Seasonal Influenza, Split, I IV3, No Preserve, Inj 12/30/2010 Seasonal Influenza, Split, I IV3, With Preserve, Inj 10/20/2014,11/04/2012 TDAP (age 10 and older)(Boostrix) 12/18/2019 TDAP (age 11 and older)(Adacel) 05/14/2008 documented as of this encounter Social History Tobacco Use Types Packs/Day Years Used Date Smoking Tobacco: Former Cigarettes 0.5 15 0 10/04/2000 - 10/05/2015 Smokeless Tobacco: Never Comments:started age 13, has quit off and on Alcohol Use Standard Drinks/Week Comments No 0 (1 standard drink = 0.6 oz pur e alcohol) PHQ-2 Answer Date Recorded PHQ-2 Score 0 12/18/2019 Sex and Gender Information Value Date Recorded Sex Assigned at Not on file Gender Identity Not on file Sexual Orientation Not on file Job Start Date Occupation Industry Not on file Not on file Not on file documented as of this encounter Progress Notes * Pio Block, - 06/10/2023 2:30 PM EDT Subjective: Rita Cervantes is a 42 year old female. Chief Complaint Patient presents with Acute There are no exam notes on file for this visit. HPI: This is a 42 year old female with PMHx as below presents for televideo phone visit. After connecting through televideo, patient was verified with two unique identifiers. Patient (or authorized legal b2b outside sales representative) was then informed that this was a Telemedicine visit and that the exam was being conducted confidentially over secure lines. My office door was closed. No one else was in the room with me. Patient acknowledged consent and understanding of privacy and security of the Telemedicine visit, and gave permission to have a telemedicine presenter stay in the room in order toassist with the history and to conduct the exam as needed. I informed the patient that I have reviewed their record in [employer] and presented the opportunity for them to ask any questions regarding the visit today. The patient agreed to participate. Patient location: HOME. I was in a hospital or clinic location. After connecting through [employer],patient was verified with two unique identifiers. Patient (or authorized legal b2b outside sales representative) was then informed that this was a Telemedicine visit and being conducted confidentially over secure lines. Methods to assure confidentiality were taken. Patient acknowledged consent and understanding of pr ivacy and security of the Telemedicine visit. The patient agreed to participate. Sinus infection - weeks Eating and drinking ok No fevers but notes higher temps Tried OTC meds w/o relief Plan: augmentin, aram med sinus rinse, flonase, humidifier Health Maintenance Due Topic Date Due Hepatitis C Screening Never done Hepatitis B (1 of 3 - 19+ 3-dose series) Never done Cervical Cancer Screening 06/11/2018 TSH 07/14/2019 Mammogram Never done Lipid Panel 04/24/2022 COVID-19 Vaccine ( season) Never done Patient Active Problem List Diagnosis Code Attention deficit hyperactivity disorder (ADHD) F90.9 Posttraumatic stress disorder F43.10 Anxiety state F41.1 Severe episode of recurrent major depressive disorder (HCC) F33.2 OCD (obsessive compulsive disorder) F42.9 Heterozygous MTHFR mutation C677T Z15.89 Ovarian failure E28.39 Chronic daily headache R51.9 Secondary adrenal insufficiency (HCC) E27.49 Mixed rhinitis J31.0 Seasonal allergic rhinitis due to fungal spores J30.2 Allergic conjunctivitis, bilateral H10.13 DDD (degenerative disc disease), cervical M50.30 Raynaud's disease without gangrene I73.00 Current Outpatient Medications Medication Sig Dispense Refill sertraline (ZOLOFT) 100 MG Tablet Take 150 mg by mouth daily. Loratadine 10 MG Cap Take 10 mg by mouth. Indications: takes as needed for allergy symptoms LORAzepam (ATIVAN) 0.5 MG Tablet Take 1 Tab by mouth 2 times a day as needed for Anxiety. 30 Tab 0 Magnesium 400 MG Capsule Take 400 mg by mouth daily. Riboflavin 400 MG Capsule Take 400 mg by mouth daily. Multiple Vitamins-Minerals (WOMENS MULTIVITAMIN) TABS Take by mouth. Vitamin D, Ergocalciferol, 74501 units Capsule Take 50,000 Units by mouth daily. hydrocortisone (CORTEF) 5 MG Tablet Take 1 Tab by mouth 2 times a day. 5 SOLU-CORTEF 100 MG SOLR As needed 5 Olopatadine HCl (PAZEO) 0.7 % SOLN Instill 1 Drop into eye daily as needed (allergic eye symptoms). amphetamine salt combo (ADDERALL) 10 MG Tablet 1 every AM noon and 4PM 0 fluticasone (FLONASE) 50 MCG/ACT nasal spray ADMINISTER 2 SPRAYS INTO EACH NOSTRIL 2 TIMES A DAY. 16 mL 11 albuterol HFA 108 (90 BASE) MCG/ACT inhaler INHALE 2 PUFFS BY MOUTH EVERY 4 HOURS NEEDED FOR COUGH, SHORTNESS OF BREATH OR WHEEZING. 1 Inhaler 1 meclizine (ANTIVERT) 25 MG Tablet Take 1 Tab by mouth 3 times a day as needed for Dizziness. 21 Tab0 ondansetron ODT (ZOFRAN ODT) [address] 1 Tab on tongue every 8 hours as needed for Nausea. dissolve on tongue. 10 Tab 0 Rizatriptan Benzoate 5 MG Tablet Take 1 Tab by mouth as needed for Migraine. May repeat in 2 hours if needed 10 Tab 11 amLODIPine (NORVASC) 2.5 MG Tablet TAKE 1 TABLET BY MOUTH EVERY DAY 30 Tab 11 ibuprofen (MOTRIN) 800 MG Tablet TAKE 1 TABLET BY MOUTH THREE TIMES A DAY 90 Tab 5 Levothyroxine Sodium 125 MCG Oral Tablet (Synthroid) Take 1 Tab by mouth daily. (at least 30 min prior to breakfast or other meds) 30 Tab 11 Estradiol 0.1 MG/24HR Transdermal Patch Twice Weekly APPLY 1 PATCH TO SKIN TWICE PER WEEK 8 Patch 5 No current facility-administered medications for this visit. Past Medical History: Diagnosis Date Abnormal Papanicolaou smear of cervix and cervical HPV 2004 nl paps 2006, 2007 Abnormal Papanicolaou smear of cervix and cervical HPV age 18 , nl pap AF (amaurosis fugax) Anxiety state, unspecified 02/23/2011 Attention deficit hyperactivity disorder (ADHD) 02/23/2011 Heterozygous MTHFR mutation C677T 05/06/2015 History of cryosurgery 2005 cryo on cervix for abn pap Menopause 05/24/2015 Amenorrhea since 12/2012 with Depo OCD (obsessive compulsive disorder) 10/21/2012 Posttraumatic stress disorder 02/23/2011 PTSD (post-traumatic stress disorder) 10/21/2012 Recur major depress, severe (HCC) 02/23/2011 Routine general medical examination at a health care facility 10/21/2012 Choices-Denisa Campbell counselor Dr Vinson-@[email or web address] Thyroid nodule FNA schedule 14 July 31 [Quinten Ferris] Tobacco use disorder 04/22/2005 Vitreoretinal dystrophy Past Surgical History: Procedure Laterality Date COLONOSCOPY, DIAGNOSTIC (RECTUM) 11/19/2016 hyperplastic polyp, repeat 10 yrs/COLONOSCOPY FLEXIBLE PROXIMAL DIAGNOSTIC performed by Eulalio Alexis MD at ENDOSCOPY [facility] CRYOCAUTERY OF CERVIX 02/19 nl paps EGD, FLEXIBLE, DIAGNOSTIC 09/27/2015 benign duodenal polyp/ESOPHAGOGASTRODUODENOSCOPY (EGD), FLEXIBLE, TRANSORAL, DIAGNOSTIC performed by Deborah Grijalva MD at ENDOSCOPY [facility] REMOVAL OF CORNEAL F.B. W/SLIT LAMP Right AGE 12 METAL REMOVED FROM EYE Review of patient's allergies indicates: Allergen Reactions Prempro [Conj Estrog-Medroxyprogest Clive] Other (Please comment) and Rash Breathing issues Ciprofloxacin Edema Other Edema and erythema of the hands Family History Problem Relation Age of Onset Thyroid Disorder Mother dx hypot at age 15 Mental Disorder Mother depression Blood Disorder Mother Allergies Mother nasal allergies; metal allergy Hypertension Father Arthritis Father knee surgeries Allergies Father seasonal rhinitis Hypertension Grandmother (Maternal) Diabetes Grandmother (Maternal) Cancer Grandmother (Maternal) ?liver CA- Mental Disorder Grandmother (Maternal) depression Blood Disorder Grandmother (Maternal) blood clots Heart Disorder Grandmother (Maternal) Arthritis Grandmother (Maternal) RA Hypertension Grandfather (Maternal) Diabetes Grandfather (Maternal) Cancer Grandfather (Maternal) prostate CA- Diabetes Grandmother (Paternal) Mental Disorder Grandmother (Paternal) depression Other (old age 96YO) Grandmother (Paternal) Cancer Grandfather (Paternal) liver CA Stroke Grandfather (Paternal) No Past Hx Brother Eye Problems None Denies FH: AMD, Glaucoma, RD's or Blindness Thyroid Disorder Daughter hashimotos Allergies Daughter pollen allergies; OAS Allergies Daughter seasonal allergies Allergies Son seasonal allergies Family Status Relation Status Mo Alive Fa Alive MGMA (Not Specified) MGFA (Not Specified) PGMA (Not Specified) PGFA (Not Specified) Bro (Not Specified) NONE (Not Specified) Gadiel Alive Gadiel Alive Son Alive Social History Socioeconomic History Marital status: Spouse name: Not on file Number of children: 3 Years of education: Not on file Highest education level: Not on file Occupational History 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 Tobacco Use Smoking status: Former Current packs/day: 0.00 Average packs/day: 0.5 packs/day for 15.0 years (7.5 ttl pk-yrs) Types: Cigarettes Start date: 10/04/2000 Quit date: 10/05/2015 Years since quittin.6 Smokeless tobacco: Never Tobacco comments: started age 13, has quit off and on Substance and Sexual Activity Alcohol use: No Drug use: No Sexual activity: Yes Partners: Male control/protection: Condom Comment: from . dating. 3 kids-6-14. Other Topics Concern Not on file Social History Narrative Likes to work outside, hiking, dancing, movies, family Social Determinants of Health Financial Resource Strain: Not on file Food Insecurity: Not on file Transportation Needs: Not on file Physical Activity: Not on file Stress: Not on file Social Connections: Not on file Intimate Partner Violence: Not on file Housing Stability: Not on file Review of Systems: As per HPI all other ROS negative. Wt Readings from Last 3 Encounters: 12/18/19 72.6 kg (160 lb) 01/24/19 69.4 kg (153 lb) 08/30/18 67.3 kg (148 lb 6.4 oz) Results for orders placed or performed in visit on 01/04/20 COVID-19 Result Value Ref Range SPECIMEN SOURCE NASAL TURBINATE FIRST COVID TEST UNKNOWN ? NO EMPLOY IN HEALTHCARE NO HOSPITALIZED NO INTENSIVE CARE UNIT NO RESIDENT CONGREGRATE NO SYMPTOMATIC UNKNOWN CORONAVIRUS RESULT NEGATIVE NEG COMMENT 2019 Novel coronavirus NOT detected OBJECTIVE: Physical Exam: Not done There are no diagnoses linked to this encounter. Follow Up: Return if symptoms worsen or fail to improve. Pio Block DO documented in this encounter Miscellaneous Notes * Addendum Note - Pio Block DO - 06/10/2023 2:34 PM EDTAddended by: PIO BLOCK on: 06/10/2023 02:34 PM Modules accepted: Orders documented in this encounter Plan of Treatment Scheduled Orders Name Type Priority Associated Diagnoses Orde r Schedule MAMMOGRAM SCREENING ALEX BILATERAL Medical Imaging Routine Encounter for screening mammogram for breast cancer Expected: 06/11/2023 (Approximate), Expires: 07/09/2024 Scheduled Procedures Name Priority Associated Diagnoses Date/Ti me COLONOSCOPY FLEXIBLE PROXIMAL DIAGNOSTIC Recall History of colon polyps Health Maintenance Due Date Last Done Comments Hepatitis C Screening 09/19/1999 Hepatitis B (1 of 3 - 19+ 3-dose series) 2000 HPV/Co-Test 09/19/2011 Cervical Cancer Screening 06/11/2018 Pap Smear 06/11/2018 06/12/2015, 09/17, 11/17/2010, Additional history exists TSH 07/14/2019 07/13/2018, 12/16, 09/07/2017, Additional history exists Mammogram 2021 Lipid Panel 04/24/2022 04/24/2017, 06/2014, 08/12/2010, Additional history exists COVID-19 Vaccine ( season) 2022 Influenza Vaccine (FLU shot) (Season Ended) 2023 12/18/2019, 12/28/2017, 12/28/2017, Additional history exists DTaP,Tdap,and Td Vaccines (3 - Td or Tdap) 12/17/2029 12/18/2019, 05/14/2008 Pneumococcal Vaccine: Pediatrics (0 to 5 Years) and At-Risk Patients (6 to 64 Years) Aged Out 10/21/2012 No longer eligible based on patient's age to complete this topic GARDASIL-HPV IMMUNIZATION SERIES Aged Out No longer eligible based on patient's age to complete this topic MENINGOCOCCAL (MENACTRA/MENVEO) Aged Out No longer eligible based on patient's age to complete this topic documented as of this encounter Medical Devices Not on filedocumented as of this encounter Visit Diagnoses Diagnosis Acute sinusitis, recurrence not specified, unspecified location- Primary Encounter for screening mammogram for breast cancer documented in this encounter Care Teams Legal Transcriptionist Relationship Specialty Start Date End Date Yovany Kramer DO [address] [place] [address] PCP - General Family Medicine 05/15/15 documented as of this encounter
--- OUTSIDE RECORDS SUMMARY | 2023-11-30 01:54 | External Medical Summary | Summary of Care ---
Author Name Unknown Organization [facility] Address [address] [place] [address] Phone [phone] Care Team Providers Care Lens Blocker Name Role Phone DuYovany agosto Primary Care Provider Reason for Visit * Reason Comments Acute Encounter Details Date Type Department Care Team (Late st Contact Info) Description 06/10/2023 2:40 PM EDT Telemedicine Family Practice [facility] [address] [place] [address] Pio Block DO [address] [facility] [place] [address] Acute sinusitis, recurrence not specified, unspecified location*; [...] by mouth. 0 Active Vitamin D, Ergocalciferol, 89782 units Capsule Take 50,000 Units by mouth [...] 10/21/2012 09/16/2015 Overview: Mar-Denisa Campbell counselor Dr Vinson-@[email or web address] Encounter for supervision of other normal 03/03/2006 [...] two unique identifiers. Patient (or authorized legal customer counter representative) was then informed that this was [...] that I have reviewed their record in [employer] and presented the opportunity for them to ask any questions regarding the visit today. The patient agreed to participate. Patient location: HOME. I was in a hospital or clinic location. After connecting through [employer],patient was verified with two unique identifiers. Patient (or authorized legal customer counter representative) was then informed that this was [...] TABS Take by mouth. Vitamin D, Ergocalciferol, 96253 units Capsule Take 50,000 Units by mouth [...] care facility 10/21/2012 Choices-Denisa Campbell counselor Dr Vinson-@[email or web address] Thyroid nodule FNA schedule 14 July 31 [Quinten Ferris] Tobacco use disorder 04/22/2005 Vitreoretinal dystrophy Past Surgical History: Procedure Laterality Date COLONOSCOPY, DIAGNOSTIC (RECTUM) 11/19/2016 hyperplastic polyp, repeat 10 yrs/COLONOSCOPY FLEXIBLE PROXIMAL DIAGNOSTIC performed by Eulalio Alexis MD at ENDOSCOPY [facility] CRYOCAUTERY OF CERVIX 02/19 nl paps EGD, FLEXIBLE, DIAGNOSTIC 09/27/2015 benign duodenal polyp/ESOPHAGOGASTRODUODENOSCOPY (EGD), FLEXIBLE, TRANSORAL, DIAGNOSTIC performed by Deborah Grijalva MD at ENDOSCOPY [facility] REMOVAL OF CORNEAL F.B. 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 Tobacco Use [...] cancer documented in this encounter Care Teams Lens Blocker Relationship Specialty Start Date End Date Yovany Kramer DO [address] [place] [address] PCP - General Family Medicine 05/15/15 documented as of this encounter
--- NOTE | 2023-11-30 08:51 | History & Physical ---
Date of Service November 30, 2023 Impression / Recommendations Impression GATO LÓPEZ is a 43-year-old woman who is currently unhoused but has been staying with friends over the past two months, has a history of ADHD, PTSD, anxiety and depression, and was admitted on 11/29/23 19:04 on a 201 voluntary commitment for worsening depression and SI with plan of wrecking her car. Diagnostically consistent with Major Depressive Disorder, PTSD, alcohol use disorder with likely associated negative impact on her mood, insomnia with multiple awakenings/night terrors, and history of ADHD with recent recreational polysubstance use. Possible additional contribution to mood symptoms from past hormonal/thyroid conditions. Discussed medication treatment options in detail. Discussed risks, benefits and alternatives. Given recent substance use in context of long-term Adderall IR use discussed and reviewed harm reduction strategies. For now, pending confirmatory UDS and levels, will continue with Adderall given her report of only singular use of recreational substances and failed trials of multiple prior non-stimulant options and lower risk options. However, reviewed that an extended release option is preferred, and ideally Vyvanse given lower risk for misuse though this is not available on hospital formulary. She would like to start and consented to Adderall ER with afternoon IR dose in exchange for TID dosing for ADHD, clonidine for ADHD as nonstimulant option and off-label for PTSD night terrors, sertraline for MDD/PTSD and naltrexone for alcohol use disorder. Reviewed side effects including but not limited to: GI, GIFFORD, sexual side effects with sertraline; low BP/syncope with clonidine; GI sx/liver failure, need to avoid opioid use with naltrexone; addiction/misuse, cardiac risks, insomnia, decreased appetite, potential for increased anxiety/irritability with Adderall IR and ER. The patient's audit score, use history and negative consequences suggests alcohol use disorder and recent recreational substance use exploration. Motivational interviewing was done as a brief intervention. Intervention was greater than 5 minutes in length and included assessing readiness to quit, advice on how to reduce or abstain and to set a specific goal for this hospitalization. fruit harvest worker will also assist in anticipating barriers to reducing or abstaining from substance use and in problem-solving for solutions to those problems while arranging for referral to appropriate treatment. The patient is in contemplative stage with regards to transtheoretical model of change. Recommended decreasing consumption due to disinhibiting effects and potential for worsening psychiatric symptoms. Reviewed option for residential substance use treatment, she declines at this time but agrees to consider this further. Overall I spent a total of 80 minutes for this admission including review of chart records, review of labwork, direct evaluation of the patient, counseling the patient, ordering medication, risk assessment, discussion with the psychiatric liason RN and documentation in the electronic health record. 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 The patient will participate in group, recreational, and milieu therapies and will be offered additional individual and family sessions as clinically appropriate. -AWSS with thiamine, folic acid and po ativan for scoring -Medications: * Start sertraline 50mg daily * Start naltrexone 50mg daily with dinner * Start clonidine 0.1mg HS * Switch from Adderall IR 10mg TID to Adderall ER 20mg qAM and 10mg IR qafternoon (reviewed PDMP, no irregularities noted, consistent provider and pharmacy) -Would benefit from trauma and substance use therapy -Consider CM referral given housing insecurity -Attempt to get records and coordinate with her outpatient psychiatric provider -Will need outpatient PCP appointment (she has not seen her provider in about 2 years, wants to discuss options for referral for outpatient REMELTER and Endocrinology to determination if need for estrogen and thyroid supplementation) Inventory Assets Strengths: supportive relationships, willing to get treatment Needs: safety and stabilization, medication adjustment, additional coping skills, increased outpatient services Suicide Risk Level Suicide Risk Level: High-Moderate (q15 min suicide checks) (depression, PTSD, SI with plan and multiple stressors with substance use and significant other and friend with by suicide, feels safe in the hospital and feels able to ask for support) Suicide Risk Level Comments: Risk Factors Assessment Male: No : Yes Do You Have Access To A Gun?: No Mental Health Diagnoses: Yes Substance Use Disorders: Yes Previous Attempt: Yes Family History of Suicide: Yes (friend and partner) Previous Psychiatric Hospitalization: Yes Hopelessness: Yes Protective Factors Assessment Employed: Yes Stable Relationships: Yes Supportive Family: Yes Psychiatric History Identifying Data GATO LÓPEZ is a 43-year-old woman who is currently unhoused but has been staying with friends over the past two months, has a history of ADHD, PTSD, anxiety and depression, and was admitted on 11/29/23 19:04 on a 201 voluntary commitment for worsening depression and SI with plan of wrecking her car. Chief Complaint "Life has been chaos, it's been like that for awhile". History of Present Illness She presents for psychiatric admission for worsening depression and SI with wrecking her car in the context of multiple psychosocial stressors including her biggest support moving away this week, of her close friend in July, recent breakup, argument with the friend she's been staying with and upcoming anniversary of the of her boyfriend who by suicide in front of her, and ongoing grief. Yesterday she had been out the night before and didn't sleep well and then got in argument with the friend the next day and he started yelling and then knowing her friend was leaving to move all culminated to leading her SI to the point of wanting to act on thoughts of wrecking her car. She started driving and "i felt really out of it" and then showed up a friend's house and he helped her reach out to her other friend and go to Crisis. She's experienced a lot of trauma and depression since childhood but it significantly worsened after her boyfriend . Then in the last few months after the of her friend her SI has intensified. SI has been occurring once or twice a week and often worsens after drinking alcohol. He endorses depressive symptoms including tearfulness, anhedonia (but does enjoy doing some painting, restoring antiques, and music), variable motivation, self- guilt, helplessness, hopelessness, worthlessness, has been feeling like a burden, variable energy (worse when not on her ADHD medication), decreased appetite, and decreased sleep (can fall asleep but then has been waking up startled throughout the night). She also endorses symptoms of anxiety including generalized worries, shakiness, easily overwhelmed and panic attacks typically 2-3 times a week. She's found that when her ADHD is better controlled her anxiety is less. She also endorses PTSD symptoms including hypervigilance, night terrors, in the past would dissociate but less frequent now, emotional changes including numbness, flashbacks (varies but loud noises will trigger), and avoidance. She is currently prescribed psychiatric medication of Adderall TID, has been filling scripts of sertraline but states she hasn't been taking this for years (unclear why she has been filling scripts for this, she reports she hadn't been taking it previously due to cost when she didn't have insurance, however she has been filling it recently). Psychiatric ROS notable for no current nor history of symptoms of codi, psychosis. History of OCD in childhood, self-harm as a teenager. Past Psychiatric History Current Psychiatric Diagnosis: PTSD, Anxiety, Depression, ADHD Outpatient Services: [facility] for psychiatry, no current therapist [facility] [place] [facility] a [facility] Do You Have Access To A Gun?: No History of Previous Suicide Attempt: Yes Describe Attempts in the Past: age 15 via OD, age 16 slit wrists Past Medication Trials: sertraline and lamictal in the past; trazodone in the past for insomnia, ativan intermittently for panic attacks after her partner . Prozac, Lexapro, Effexor, Wellbutrin in the past without benefit. hx Strattera, hx clonidine and guanfacine. Past Head Trauma/Neuro History History of Concussion/Seizure: No Allergies Allergy/AdvReac Type Severity Reaction Status Date / Time ciprofloxacin Allergy Intermediate swelling Verified 12/10/21 03:17 estrogens, conjugated Allergy Intermediate rash, Verified 12/10/21 03:17 swelling medroxyprogesterone Allergy Intermediate rash, Verified 12/10/21 03:17 swelling prednisone Allergy Intermediate rash , Verified 12/10/21 03:17 swelling Home Medications Medication Instructions Recorded Confirmed Type dextroamphetamine-amphetamine 10 10 mg PO TID 11/29/23 11/29/23 History mg tablet (Adderall) sertraline 100 mg tablet (Zoloft) 100 mg PO DAILY 11/30/23 11/30/23 History Family History Family History of: Depression (mother), Anxiety (mother) and Alcoholism/Drug Abuse (paternal grandfather) Alcohol History Hx of Alcohol Use Over the Past 12 Months: Yes (Daily 5-6 drinks) AUDIT Total Score: 19 Got a DUI after her partner from excessive use. She quit for a few months this spring but then started using it again as a coping mechanism. The past few weeks has increased her use significantly to 5-6 per evening. She likes that it "numbs" her pain and the "distraction". She doesn't like that the fear that it could lead her to getting out of control, the after effects the next morning, increased tobbacco use. Smoking Use Have You Smoked or Used Tobacco Products in the Last 30 Days: Yes tobacco type: cigarettes Smoking Status: Current every day smoker Smoking packs per day: 1 Substance History Hx of Prescription Med Misuse Over the Past 12 Months: No Hx of Over the Counter Med Misuse Over the Past 12 Months: No Hx of Inhalent Misuse Over the Past 12 Months: No Hx of Organic Substance Use Over the Past 12 Months: Yes (Marjuana use) Hx of Illegal Substances/Street Drug Use Over Past 12 Months: Yes (Cocaine, Ectasy) Problems as a Result of Past Substance Use: Other Problems as a Result of Past Substance Use Comments: DUI-on probation currently until February 2024 reports only recent use of "harder" substances in the last few years and the friends she's been staying with all use substances and it's often readily available. Has used cocaine twice in the past year and ecstasy 5-6 days ago for the first time in 2 years. Cannabis occasionally but doesn't like the lack of motivation for it, but sometimes finds it helpful for sleep. Personal History Living Arrangements: Homeless Highest Grade Completed: Some College (Associates degree, medicare sales executive education and close to completion of psychology degree) Employment Status: [employer] Employed (works for a [employer]) Marital Status: Single Number Of Children: 3 children-25,21,17 Beliefs That Will Affect Care: None Current Legal Problems: Yes (DUI probation, completed most requirements; PFA against ex- ) Hx Legal Problems: No Hx Traumatic Life Events: Yes Patient History Medical History Chronic headaches Surgical History S/P thyroidectomy Right thyroidectomy for benign nodule History of cryosurgery Family History Father Aortic dissection Dyslipidemia Hypertension Mother COPD (chronic obstructive pulmonary disease) Hypertension Hypothyroidism Other Cancer Social History Smoking Status: Current every day smoker Tobacco Type: Cigarettes Cigarettes Per Day: 1 pack per day; Hx Alcohol Use: Yes Hx Substance Use: Yes Non-Prescribed Medications: Marijuana Last Used Substance: Days (ago) Last Used Substance Other:: 3 days ago Preferred Language: Chadian Communication Ability: Effective Geophysical Prospecting Permit Agent Required: No Beliefs That Will Affect Care: None marital status: Current Living Situation: Family Current Living Situation Comment: Lives with parents current occupational status: employed Feels Safe at Home: Yes Gender Identity: Female Assistive Devices: Contacts and Glasses Review of Systems Review of Systems: All systems reviewed & are unremarkable except as noted in HPI & below Physical Exam Psychiatric: Orientation: alert and oriented x 3 Apperance: appropriately dressed and appropriately groomed Eye Contact: good eye contact Motor Beh avior: no abnormal motor movements Speech: normal rate/rhythm/volume of speech Affect: + depressed affect and + flat affect Mood: + depressed mood and + anxious mood Thought Process: goal directed thought process Thought Content: reality based without delusions Suicidal Thoughts: denies suicidal plan (none for hospital, before admission to crash her car) and denies suicidal intent; + reports suicidal thoughts (intermittent thoughts ) Homicidal Thoughts: denies homicidal thoughts Hallucinations: no auditory hallucinations and no visual hallucinations Cognition: recent memory grossly intact, remote memory grossly intact, attention grossly intact and language grossly intact Estimated Intelligence: consistent with education level Insight: + limited insight Judgment: + limited judgement Vital Signs (Past 24 Hours): Last Vital Signs Temp 35.7 C L 11/30/23 06:00 Pulse 90 11/30/23 06:00 Resp 16 11/30/23 06:00 BP 136/87 11/30/23 06:00 Pulse Ox 99 11/29/23 21:13 O2 Del Method Room Air 11/29/23 21:13 Exam Statement: A physical exam was performed in the ED by Dr. Tomlinson for the purposes of medical clearance. I accept that physical as correct and adequate for the purposes of the inpatient physical exam. Results & Data ([facility]) Laboratory Results Laboratory Results - last 24 hr 11/29/23 11/29/23 11/29/23 15:05 15:20 15:31 WBC 6.79 RBC 4.03 L Hgb 13.4 Hct 39.1 MCV 97.0 MCH 33.3 MCHC 34.3 RDW Std Deviation 45.6 RDW Coeff of Ashley 12.7 Plt Count 256 MPV 10.1 Immature Gran % (Auto) 0.1 Neut % (Auto) 68.5 Lymph % (Auto) 23.9 Haywood % (Auto) 5.3 Eos % (Auto) 1.6 Baso % (Auto) 0.6 Neut # (Auto) 4.65 Lymph # (Auto) 1.62 Haywood # (Auto) 0.36 Eos # (Auto) 0.11 Baso # (Auto) 0.04 Immature Gran # (Auto) 0.01 Sodium 139 Potassium 3.8 Chloride 105 Carbon Dioxide 28 Anion Gap 6 BUN 11 Creatinine 0.65 Est Cr Clr Drug Dosing 112.7 eGFR 112.66 BUN/Creatinine Ratio 16.9 Glucose 186 H Calcium 9.6 Total Bilirubin 0.5 AST 22 ALT 14 Alkaline Phosphatase 45 Total Protein 7.4 Albumin 4.4 Globulin 3.0 Albumin/Globulin Ratio 1.5 TSH 2.198 Urine Color Urine Appearance Urine pH Ur Specific [place] Urine Protein Urine Glucose (UA) Urine Ketones Urine Blood Urine Nitrite Urine Bilirubin Urine Urobilinogen Ur Leukocyte Esterase Urine Test Negative Urine Opiates Screen Ur Methadone, Qual Urine Fentanyl Screen Urine Barbiturates Ur Phencyclidine (PCP) U Amphetamines Confirm U Amphetamin/Meth Scrn U Methamphetamin Confrm Urine MDEA MDMA (Ecstasy) Screen MDMA Urine MDMA U Benzodiazepines Scrn U Cocaine Confirm GC/MS Ur Cocaine Metabolite U Marijuana (THC) Screen U Marijuana THC Carboxy Drug Screen Comment Ethyl Alcohol mg/dL < 10.0 SARS-CoV-2, RNA, NAAT NEGATIVE 11/29/23 Unknown WBC RBC Hgb Hct MCV MCH MCHC RDW Std Deviation RDW Coeff of Ashley Plt Count MPV Immature Gran % (Auto) Neut % (Auto) Lymph % (Auto) Haywood % (Auto) Eos % (Auto) Baso % (Auto) Neut # (Auto) Lymph # (Auto) Haywood # (Auto) Eos # (Auto) Baso # (Auto) Immature Gran # (Auto) Sodium Potassium Chloride Carbon Dioxide Anion Gap BUN Creatinine Est Cr Clr Drug Dosing eGFR BUN/Creatinine Ratio Glucose Calcium Total Bilirubin AST ALT Alkaline Phosphatase Total Protein Albumin Globulin Albumin/Globulin Ratio TSH Urine Color Yellow Urine Appearance Clear Urine pH 6.5 Ur Specific [place] 1.018 Urine Protein Negative Urine Glucose (UA) Negative Urine Ketones Negative Urine Blood Negative Urine Nitrite Negative Urine Bilirubin Negative Urine Urobilinogen Negative Ur Leukocyte Esterase Negative Urine Test Urine Opiates Screen Neg Ur Methadone, Qual Neg Urine Fentanyl Screen Neg Urine Barbiturates Neg Ur Phencyclidine (PCP) Neg U Amphetamines Confirm Pending U Amphetamin/Meth Scrn Pos H U Methamphetamin Confrm Pending Urine MDEA Pending MDMA (Ecstasy) Screen Pos H MDMA Pending Urine MDMA Pending U Benzodiazepines Scrn Neg U Cocaine Confirm GC/MS Pending Ur Cocaine Metabolite Pos H U Marijuana (THC) Screen Pos H U Marijuana THC Carboxy Pending Drug Screen Comment Pending Ethyl Alcohol mg/dL SARS-CoV-2, RNA, NAAT Current Inpatient Medications Current Inpatient Medications: Current Inpatient Medications Acetaminophen (Acetaminophen 325 Mg Tab) 650 mg PO Q4H PRN PRN Reason: Headache or Minor Fever Stop: 12/29/23 19:13 Al Hydrox/Mg Hydrox/Simethicone (Aluminum/Magnesium Susp 30 Ml Udc) 30 ml PO Q4H PRN PRN Reason: GI Upset Stop: 12/29/23 19:13 Bismuth Subsalicylate (Bismuth Subsalicylate 262 Mg Chew) 2 tab PO Q30M PRN PRN Reason: Loose Stool/Diarrhea Stop: 12/29/23 19:13 Folic Acid (Folic Acid 1 Mg Tab) 1 mg PO QAM MARIA ANTONIA Stop: 12/30/23 08:59 Hydroxyzine HCl (Hydroxyzine Hcl 25 Mg Tab) 50 mg PO HSZ PRN PRN Reason: Insomnia Stop: 12/29/23 19:13 Last Admin: 11/29/23 21:23 Dose: 50 mg Hydroxyzine HCl (Hydroxyzine Hcl 25 Mg Tab) 25 mg PO Q4H PRN PRN Reason: Anxiety Stop: 12/29/23 19:13 Levothyroxine Sodium (Levothyroxine Sodium 137 Mcg Tablet) 137 mcg PO DAILY MARIA ANTONIA Stop: 12/30/23 08:59 Lorazepam (Lorazepam 1 Mg Tab) 1 mg PO UD PRN; Protocol PRN Reason: EtOH Withdrawal AWSS Score 6,7 Stop: 12/29/23 23:06 Lorazepam (Lorazepam 1 Mg Tab) 3 mg PO ONCE PRN; Protocol PRN Reason: EtOH Withdrawal AWSS Score 10 & above Lorazepam (Lorazepam 1 Mg Tab) 2 mg PO UD PRN; Protocol PRN Reason: EtOH Withdrawal AWSS Score 8,9 Stop: 12/29/23 23:06 Magnesium Hydroxide (Magnesium Hydroxide Susp 30 Ml Udc) 30 ml PO DAILY PRN PRN Reason: Constipation Stop: 12/29/23 19:13 Miscellaneous (Remove Nicoderm Patch) 1 each N/A DAILY@0859 [facility] Stop: 12/30/23 08:58 Nicotine (Nicotine 21 Mg/24 Hr Tdsy) 1 patch TD [facility] Stop: 12/30/23 08:59 Nicotine Polacrilex (Nicotine Polacrilex 2 Mg Gum) 2 piece MT Q2H PRN PRN Reason: Nicotine Withdrawal Symptoms Stop: 12/29/23 19:13 Last Admin: 11/29/23 20:31 Dose: 2 piece Sodium Chloride (Sodium Chloride 0.65% Na Soln 45 Ml (Mora)) 1 - 2 sprays NA PRN PRN PRN Reason: Nasal Dryness/Congestion Stop: 12/29/23 19:13 Thiamine HCl (Thiamine Hcl 100 Mg Tab) 100 mg PO QAM [facility] Stop: 12/30/23 08:59
[2023-11-30] MEDS: THIAMINE HCL 100 MG TAB PO SCH (08:59)
[2023-11-30] MEDS: FOLIC ACID 1 MG TAB PO SCH (08:59)
[2023-11-30] MEDS: NICOTINE 21 MG/24 HR TDSY TD SCH (09:00)
[2023-11-30] MEDS: LEVOTHYROXINE SODIUM 137 MCG TABLET PO SCH (09:30)
[2023-11-30] MEDS: DEXTROAMPHETAMINE/AMPHETAMINE IR 20 MG TAB PO SCH (16:48)
[2023-11-30] MEDS: NALTREXONE HCL 50 MG TAB PO SCH (17:13)
[2023-11-30] MEDS: cloNIDine HCL 0.1 MG TAB PO SCH (21:14)
[2023-12-01] MEDS: SERTRALINE HCL 50 MG TABLET PO SCH (08:37)
[2023-12-01] MEDS: DEXTROAMPHETAMINE/AMPHETAMINE ER 20 MG CAP PO SCH (08:39)
--- NOTE | 2023-12-01 09:08 | Psychiatric Progress Note ---
Date of Service December 01, 2023 Impression / Recommendations Impression GATO LÓPEZ is a 43-year-old woman who is currently unhoused but has been staying with friends over the past two months, has a history of ADHD, PTSD, anxiety and depression, and was admitted on 11/29/23 19:04 on a 201 voluntary commitment for worsening depression and SI with plan of wrecking her car. Diagnostically consistent with Major Depressive Disorder, PTSD, alcohol use disorder with likely associated negative impact on her mood, insomnia with multiple awakenings/night terrors, and history of ADHD with recent recreational polysubstance use. Possible additional contribution to mood symptoms from past hormonal/thyroid conditions. A: Mood improving a bit today, slept better with addition of clonidine. Tolerating medications well so far without any side effects. Has not required any ativan for AWSS monitoring of alcohol withdrawal but will continue to closely monitor this. Discussed impact of stressors including housing insecurity. Overall, I spent a total of 35 minutes on this case including meeting with the patient, reviewing the chart, nursing report, multidisciplinary team meeting, orders, and documentation. 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 Looking into options for CM and therapy referrals. 11/30/2023: The patient was admitted to the [facility] ([facility]) on q15 min checks (behavioral with suicide precautions) for safety. The patient will participate in group, recreational, and milieu therapies and will be offered additional individual and family sessions as clinically appropriate. -AWSS with thiamine, folic acid and po ativan for scoring -Medications: * Start sertraline 50mg daily * Start naltrexone 50mg daily with dinner * Start clonidine 0.1mg HS * Switch from Adderall IR 10mg TID to Adderall ER 20mg qAM and 10mg IR qafternoon (reviewed PDMP, no irregularities noted, consistent provider and pharmacy) -Would benefit from trauma and substance use therapy -Consider CM referral given housing insecurity -Attempt to get records and coordinate with her outpatient psychiatric provider -Will need outpatient PCP appointment (she has not seen her provider in about 2 years, wants to discuss options for 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 for 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 and Endocrinology to determination if need for estrogen and thyroid supplementation) Inventory Assets Strengths: supportive relationships, willing to get treatment Needs: safety and stabilization, medication adjustment, additional coping skills, increased outpatient services Suicide Risk Level Suicide Risk Level: Moderate (q15 min suicide checks) (depression, PTSD, SI with plan and multiple stressors with substance use and significant other and friend with by suicide but mood improving today, lessening of SI, feels safe in the hospital and feels able to ask for support) Suicide Risk Level Comments: Risk Factors Assessment Male: No : Yes Do You Have Access To A Gun?: No Mental Health Diagnoses: Yes Substance Use Disorders: Yes Previous Attempt: Yes Family History of Suicide: Yes (friend and partner) Previous Psychiatric Hospitalization: Yes Hopelessness: Yes Protective Factors Assessment Employed: Yes Stable Relationships: Yes Supportive Family: Yes Interval History Identifying Information GATO LÓPEZ is a 43-year-old woman who is currently unhoused but has been staying with friends over the past two months, has a history of ADHD, PTSD, anxiety and depression, and was admitted on 11/29/23 19:04 on a 201 voluntary commitment for worsening depression and SI with plan of wrecking her car. Chief Complaint "Not too bad". Review of Systems Sleep Information Total Hours of Sleep: 8 Meal Information Percent Meal Consumed - Breakfast: 100 Percent Meal Consumed - Lunch: 100 Percent Meal Consumed - Dinner: 100 Subjective Subjective Patient was seen & assessed and interval progress reviewed with treatment team nursing and social work. Her daughter and a friend visited last evening, they were tearful. Last night reported her mood as "clearer". Today reports having slept well last night with the clonidine, had no night terrors. Tolerating other medications so far without any side effects. Remains anxious and worries about housing insecurity. Feels the Adderall ER is helpful and feels "more even" than her previous IR TID dosing so far. Decreasing SI today. Physical Exam Psychiatric Orientation: alert and oriented x 3 Apperance: appropriately dressed and appropriately groomed Eye Contact: good eye contact Motor Behavior: no abnormal motor movements Speech: normal rate/rhythm/volume of speech Affect: + depressed affect and + anxious affect Mood: + depressed mood and + anxious mood Thought Process: goal directed thought process Thought Content: reality based without delusions Suicidal Thoughts: denies suicidal plan (none for hospital, before admission to crash her car) and denies suicidal intent; + reports suicidal thoughts (intermittent thoughts, lessening today ) Homicidal Thoughts: denies homicidal thoughts Hallucinations: no auditory hallucinations and no visual hallucinations Cognition: recent memory grossly intact, remote memory grossly intact, attention grossly intact and language grossly intact Estimated Intelligence: consistent with education level Insight: + limited insight Judgment: + limited judgement Vital Signs (Past 24 Hours) Last Vital Signs Temp 36.2 C L 12/01/23 06:00 Pulse 76 12/01/23 06:07 Resp 16 12/01/23 06:00 BP 129/99 12/01/23 06:07 Pulse Ox 99 11/30/23 21:17 O2 Del Method Room Air 11/30/23 21:17 Results & Data ([facility]) Current Inpatient Medications Current Inpatient Medications: Current Inpatient Medications Acetaminophen (Acetaminophen 325 Mg Tab) 650 mg PO Q4H PRN PRN Reason: Headache or Minor Fever Stop: 12/29/23 19:13 Al Hydrox/Mg Hydrox/Simethicone (Aluminum/Magnesium Susp 30 Ml Udc) 30 ml PO Q4H PRN PRN Reason: GI Upset Stop: 12/29/23 19:13 Amphetamine/Dextroamphetamine (Dextroamphetamine/Amphetamine Ir 20 Mg Tab) 10 mg PO DAILY@1600 [facility] Stop: 12/14/23 16:34 Last Admin: 11/30/23 16:48 Dose: 10 mg Amphetamine/Dextroamphetamine (Dextroamphetamine/Amphetamine Er 20 Mg Cap) 20 mg PO DAILY [facility] Stop: 12/15/23 08:59 Last Admin: 12/01/23 08:39 Dose: 20 mg Bismuth Subsalicylate (Bismuth Subsalicylate 262 Mg Chew) 2 tab PO Q30M PRN PRN Reason: Loose Stool/Diarrhea Stop: 12/29/23 19:13 Clonidine HCl (Clonidine Hcl 0.1 Mg Tab) 0.1 mg PO HS [facility] Stop: 12/30/23 21:59 Last Admin: 11/30/23 21:14 Dose: 0.1 mg Folic Acid (Folic Acid 1 Mg Tab) 1 mg PO QAM [facility] Stop: 12/30/23 08:59 Last Admin: 12/01/23 08:37 Dose: 1 mg Hydroxyzine HCl (Hydroxyzine Hcl 25 Mg Tab) 50 mg PO HSZ PRN PRN Reason: Insomnia Stop: 12/29/23 19:13 Last Admin: 11/29/23 21:23 Dose: 50 mg Hydroxyzine HCl (Hydroxyzine Hcl 25 Mg Tab) 25 mg PO Q4H PRN PRN Reason: Anxiety Stop: 12/29/23 19:13 Lorazepam (Lorazepam 1 Mg Tab) 1 mg PO UD PRN; Protocol PRN Reason: EtOH Withdrawal AWSS Score 6,7 Stop: 12/29/23 23:06 Lorazepam (Lorazepam 1 Mg Tab) 3 mg PO ONCE PRN; Protocol PRN Reason: EtOH Withdrawal AWSS Score 10 & above Lorazepam (Lorazepam 1 Mg Tab) 2 mg PO UD PRN; Protocol PRN Reason: EtOH Withdrawal AWSS Score 8,9 Stop: 12/29/23 23:06 Magnesium Hydroxide (Magnesium Hydroxide Susp 30 Ml Udc) 30 ml PO DAILY PRN PRN Reason: Constipation Stop: 12/29/23 19:13 Miscellaneous (Remove Nicoderm Patch) 1 each N/A DAILY@0859 [facility] Stop: 12/30/23 08:58 Last Admin: 12/01/23 08:42 Dose: 1 each Naltrexone HCl (Naltrexone Hcl 50 Mg Tab) 50 mg PO DAILYBD [facility] Stop: 12/30/23 17:14 Last Admin: 11/30/23 17:13 Dose: 50 mg Nicotine (Nicotine 21 Mg/24 Hr Tdsy) 1 patch TD QAM [facility] Stop: 12/30/23 08:59 Last Admin: 12/01/23 08:42 Dose: 1 patch Nicotine Polacrilex (Nicotine Polacrilex 2 Mg Gum) 2 piece MT Q2H PRN PRN Reason: Nicotine Withdrawal Symptoms Stop: 12/29/23 19:13 Last Admin: 12/01/23 09:02 Dose: 2 piece Sertraline HCl (Sertraline Hcl 50 Mg Tablet) 50 mg PO QAM [facility] Stop: 12/31/23 08:59 Last Admin: 12/01/23 08:37 Dose: 50 mg Sodium Chloride (Sodium Chloride 0.65% Na Soln 45 Ml ([place])) 1 - 2 sprays NA PRN PRN PRN Reason: Nasal Dryness/Congestion Stop: 12/29/23 19:13 Thiamine HCl (Thiamine Hcl 100 Mg Tab) 100 mg PO QAM [facility] Stop: 12/30/23 08:59 Last Admin: 12/01/23 08:37 Dose: 100 mg Mental Health & Subst Abuse Tx Psychiatrist Date Of Appointment With Psychiatric Provider: 12/09 Therapist Name of Therapist: N/A Solar Installation Manager Name of Solar Installation Manager: N/A
--- NOTE | 2023-12-02 08:50 | Psychiatric Progress Note ---
Date of Service December 02, 2023 Impression / Recommendations Impression GATO LÓPEZ is a 43-year-old woman who is currently unhoused but has been staying with friends over the past two months, has a history of ADHD, PTSD, anxiety and depression, and was admitted on 11/29/23 19:04 on a 201 voluntary commitment for worsening depression and SI with plan of wrecking her car. Diagnostically consistent with Major Depressive Disorder, PTSD, alcohol use disorder with likely associated negative impact on her mood, insomnia with multiple awakenings/night terrors, and history of ADHD with recent recreational polysubstance use. Possible additional contribution to mood symptoms from past hormonal/thyroid conditions. A: Ongoing stress and anxiety related to psychosocial stressors but feeling that some of her PTSD symptoms are better improved with new medications. Tolerating medications without side effects. Not scoring on AWSS so will discontinue now that beyond 72 hour carline of withdrawal. Overall, I spent a total of 30 minutes on this case including meeting with the patient, reviewing the chart, nursing report, multidisciplinary team meeting, orders, and documentation. 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 CM intake and support meeting tomorrow. 12/01/2023: Continue current medications and tx plan. Looking into options for CM and therapy referrals. 11/30/2023: The patient was admitted to the [facility] ([facility]) on q15 min checks (behavioral with suicide precautions) for safety. The patient will participate in group, recreational, and milieu therapies and will be offered additional individual and family sessions as clinically appropriate. -AWSS with thiamine, folic acid and po ativan for scoring -Medications: * Start sertraline 50mg daily * Start naltrexone 50mg daily with dinner * Start clonidine 0.1mg HS * Switch from Adderall IR 10mg TID to Adderall ER 20mg qAM and 10mg IR qafternoon (reviewed PDMP, no irregularities noted, consistent provider and pharmacy) -Would benefit from trauma and substance use therapy -Consider CM referral given housing insecurity -Attempt to get records and coordinate with her outpatient psychiatric provider -Will need outpatient PCP appointment (she has not seen her provider in about 2 years, wants to discuss options for 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 for 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 and Endocrinology to determination if need for estrogen and thyroid supplementation) Inventory Assets Strengths: supportive relationships, willing to get treatment Needs: safety and stabilization, medication adjustment, additional coping skills, increased outpatient services Suicide Risk Level Suicide Risk Level: Moderate (q15 min suicide checks) (depression, PTSD, SI with plan and multiple stressors with substance use and significant other and friend with by suicide but mood improving today, lessening of SI, feels safe in the hospital and feels able to ask for support) Suicide Risk Level Comments: Risk Factors Assessment Male: No : Yes Do You Have Access To A Gun?: No Mental Health Diagnoses: Yes Substance Use Disorders: Yes Previous Attempt: Yes Family History of Suicide: Yes (friend and partner) Previous Psychiatric Hospitalization: Yes Hopelessness: Yes Protective Factors Assessment Employed: Yes Stable Relationships: Yes Supportive Family: Yes Interval History Identifying Information GATO LÓPEZ is a 43-year-old woman who is currently unhoused but has been staying with friends over the past two months, has a history of ADHD, PTSD, anxiety and depression, and was admitted on 11/29/23 19:04 on a 201 voluntary commitment for worsening depression and SI with plan of wrecking her car. Chief Complaint "Stressed but ok". Review of Systems Sleep Information Total Hours of Sleep: 7.30 Sleep Comments: HS Clonidine Meal Information Percent Meal Consumed - Breakfast: 100 Percent Meal Consumed - Lunch: 100 Percent Meal Consumed - Dinner: 90 Subjective Subjective Patient was seen & assessed and interval progress reviewed with treatment team nursing and social work. Out of her room, her oldest daughter has offered for Maggie to stay with her. She's been attending groups. Last evening reported her mood as "feeling tired". She felt relief after getting update that her cat is being well cared for. Slept 7.5 hours. Continuing to tolerate her medications well. Stressed about some of her psychosocial challenges including housing insecurity but feels she is managing this with the support. Plans to have support meeting tomorrow. Physical Exam Psychiatric Orientation: alert and oriented x 3 Apperance: appropriately dressed and appropriately groomed Eye Contact: good eye contact Motor Behavior: no abnormal motor movements Speech: normal rate/rhythm/volume of speech Affect: + depressed affect and + anxious affect Mood: + depressed mood and + anxious mood Thought Process: goal directed thought process Thought Content: reality based without delusions Suicidal Thoughts: denies suicidal plan (none for hospital, before admission to crash her car) and denies suicidal intent; + reports suicidal thoughts (intermittent, lessening ) Homicidal Thoughts: denies homicidal thoughts Hallucinations: no auditory hallucinations and no visual hallucinations Cognition: recent memory grossly intact, remote memory grossly intact, attention grossly intact and language grossly intact Estimated Intelligence: consistent with education level Insight: + limited insight Judgment: + limited judgement Vital Signs (Past 24 Hours) Last Vital Signs Temp 36.1 C L 12/02/23 06:16 Pulse 90 12/02/23 06:16 Resp 16 12/02/23 06:16 BP 130/87 12/02/23 06:16 Pulse Ox 99 12/02/23 06:16 O2 Del Method Room Air 12/02/23 06:16 Results & Data ([facility]) Current Inpatient Medications Current Inpatient Medications: Current Inpatient Medications Acetaminophen (Acetaminophen 325 Mg Tab) 650 mg PO Q4H PRN PRN Reason: Headache or Minor Fever Stop: 12/29/23 19:13 Al Hydrox/Mg Hydrox/Simethicone (Aluminum/Magnesium Susp 30 Ml Udc) 30 ml PO Q4H PRN PRN Reason: GI Upset Stop: 12/29/23 19:13 Amphetamine/Dextroamphetamine (Dextroamphetamine/Amphetamine Ir 20 Mg Tab) 10 mg PO DAILY@1600 [facility] Stop: 12/14/23 16:34 Last Admin: 12/01/23 15:47 Dose: 10 mg Amphetamine/Dextroamphetamine (Dextroamphetamine/Amphetamine Er 20 Mg Cap) 20 mg PO DAILY [facility] Stop: 12/15/23 08:59 Last Admin: 12/02/23 08:43 Dose: 20 mg Bismuth Subsalicylate (Bismuth Subsalicylate 262 Mg Chew) 2 tab PO Q30M PRN PRN Reason: Loose Stool/Diarrhea Stop: 12/29/23 19:13 Clonidine HCl (Clonidine Hcl 0.1 Mg Tab) 0.1 mg PO HS [facility] AN[facility] Stop: 12/30/23 21:59 Last Admin: 12/01/23 21:16 Dose: 0.1 mg Folic Acid (Folic Acid 1 Mg Tab) 1 mg PO QAM [facility] Stop: 12/30/23 08:59 Last Admin: 12/02/23 08:43 Dose: 1 mg Hydroxyzine HCl (Hydroxyzine Hcl 25 Mg Tab) 50 mg PO HSZ PRN PRN Reason: Insomnia Stop: 12/29/23 19:13 Last Admin: 11/29/23 21:23 Dose: 50 mg Hydroxyzine HCl (Hydroxyzine Hcl 25 Mg Tab) 25 mg PO Q4H PRN PRN Reason: Anxiety Stop: 12/29/23 19:13 Lorazepam (Lorazepam 1 Mg Tab) 1 mg PO UD PRN; Protocol PRN Reason: EtOH Withdrawal AWSS Score 6,7 Stop: 12/29/23 23:06 Lorazepam (Lorazepam 1 Mg Tab) 3 mg PO ONCE PRN; Protocol PRN Reason: EtOH Withdrawal AWSS Score 10 & above Lorazepam (Lorazepam 1 Mg Tab) 2 mg PO UD PRN; Protocol PRN Reason: EtOH Withdrawal AWSS Score 8,9 Stop: 12/29/23 23:06 Magnesium Hydroxide (Magnesium Hydroxide Susp 30 Ml Udc) 30 ml PO DAILY PRN PRN Reason: Constipation Stop: 12/29/23 19:13 Miscellaneous (Remove Nicoderm Patch) 1 each N/A DAILY@0859 [facility] Stop: 12/30/23 08:58 Last Admin: 12/02/23 08:45 Dose: 1 each Naltrexone HCl (Naltrexone Hcl 50 Mg Tab) 50 mg PO DAILYBD [facility] Stop: 12/30/23 17:14 Last Admin: 12/01/23 17:46 Dose: 50 mg Nicotine (Nicotine 21 Mg/24 Hr Tdsy) 1 patch TD [facility] Stop: 12/30/23 08:59 Last Admin: 12/02/23 08:43 Dose: 1 patch Nicotine Polacrilex (Nicotine Polacrilex 2 Mg Gum) 2 piece MT Q2H PRN PRN Reason: Nicotine Withdrawal Symptoms Stop: 12/29/23 19:13 Last Admin: 12/01/23 17:46 Dose: 2 piece Sertraline HCl (Sertraline Hcl 50 Mg Tablet) 50 mg PO QAM [facility] Stop: 12/31/23 08:59 Last Admin: 12/02/23 08:43 Dose: 50 mg Sodium Chloride (Sodium Chloride 0.65% Na Soln 45 Ml ([place])) 1 - 2 sprays NA PRN PRN PRN Reason: Nasal Dryness/Congestion Stop: 12/29/23 19:13 Thiamine HCl (Thiamine Hcl 100 Mg Tab) 100 mg PO QAM [facility] Stop: 12/30/23 08:59 Last Admin: 12/02/23 08:43 Dose: 100 mg Mental Health & Subst Abuse Tx Psychiatrist Date Of Appointment With Psychiatric Provider: 12/09 Therapist Name of Therapist: N/A Peanut Cleaner Name of Peanut Cleaner: [employer]
[2023-12-02 10:31] VITALS: O2SAT 97
[2023-12-03 06:22] VITALS: RESP 16
--- NOTE | 2023-12-03 08:25 | Psychiatric Progress Note ---
Date of Service December 03, 2023 Impression / Recommendations Impression GATO LÓPEZ is a 43-year-old woman who is currently unhoused but has been staying with friends over the past two months, has a history of ADHD, PTSD, anxiety and depression, and was admitted on 11/29/23 19:04 on a 201 voluntary commitment for worsening depression and SI with plan of wrecking her car. Diagnostically consistent with Major Depressive Disorder, PTSD, alcohol use disorder with likely associated negative impact on her mood, insomnia with multiple awakenings/night terrors, and history of ADHD with recent recreational polysubstance use. Possible additional contribution to mood symptoms from past hormonal/thyroid conditions. A: Continues to have some anxiety and depression related to psychosocial stressors but feeling more supported, hopeful after meeting new CM and discussion of possibilities for future housing options, denies SI and future- oriented. Some sleep difficulty but improving. Tolerating medications. Overall, I spent a total of 25 minutes on this case including meeting with the patient, reviewing the chart, nursing report, multidisciplinary team meeting, orders, and documentation. 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 Looking into temporary options where she may be able to stay re: fdc vs friend's house. 12/02/2023: Continue current medications and tx plan. CM intake and support meeting tomorrow. 12/01/2023: Continue current medications and tx plan. Looking into options for CM and therapy referrals. 11/30/2023: The patient was admitted to the [facility] ([facility] inpatient mental health unit) on q15 min checks (behavioral with suicide precautions) for safety. The patient will participate in group, recreational, and milieu therapies and will be offered additional individual and family sessions as clinically appropriate. -AWSS with thiamine, folic acid and po ativan for scoring -Medications: * Start sertraline 50mg daily * Start naltrexone 50mg daily with dinner * Start clonidine 0.1mg HS * Switch from Adderall IR 10mg TID to Adderall ER 20mg qAM and 10mg IR qafternoon (reviewed PDMP, no irregularities noted, consistent provider and pharmacy) -Would benefit from trauma and substance use therapy -Consider CM referral given housing insecurity -Attempt to get records and coordinate with her outpatient psychiatric provider -Will need outpatient PCP appointment (she has not seen her provider in about 2 years, wants to discuss options for referral for outpatient LINE DIRECTOR and Endocrinology to determination if need for estrogen and thyroid supplementation) Inventory Assets Strengths: supportive relationships, willing to get treatment Needs: safety and stabilization, medication adjustment, additional coping skills, increased outpatient services Suicide Risk Level Suicide Risk Level: Moderate (q15 min suicide checks) (depression, PTSD, SI with plan and multiple stressors with substance use and significant other and friend with by suicide but mood improving, denies SI, feels safe in the hospital and feels able to ask for support) Suicide Risk Level Comments: Risk Factors Assessment Male: No : Yes Do You Have Access To A Gun?: No Mental Health Diagnoses: Yes Substance Use Disorders: Yes Previous Attempt: Yes Family History of Suicide: Yes (friend and partner) Previous Psychiatric Hospitalization: Yes Hopelessness: No Protective Factors Assessment Employed: Yes Stable Relationships: Yes Supportive Family: Yes Interval History Identifying Information GATO LÓPEZ is a 43-year-old woman who is currently unhoused but has been staying with friends over the past two months, has a history of ADHD, PTSD, anxiety and depression, and was admitted on 11/29/23 19:04 on a 201 voluntary commitment for worsening depression and SI with plan of wrecking her car. Chief Complaint "I talked to my new embedded case manager and I'm feeling more optimistic about things". Review of Systems Sleep Information Total Hours of Sleep: 6 Sleep Comments: HS Clonidine Meal Information Percent Meal Consumed - Breakfast: 90 Percent Meal Consumed - Lunch: 50 Percent Meal Consumed - Dinner: 90 Subjective Subjective Patient was seen & assessed and interval progress reviewed with treatment team nursing and social work. Attending groups. Rated her mood as "reassured" last evening. Today reports feeling more encouraged after meeting for new CM intake. Plans to stay with a friend after she leaves the hospital but waiting to hear back for confirmation. Today feeling less anxious. Had some trouble falling asleep last night due to thinking about some family stressors and housing but found that after she took her HS medication she feel asleep and stayed asleep. Denies any medication side effects. Physical Exam Psychiatric Orientation: alert and oriented x 3 Apperance: appropriately dressed and appropriately groomed Eye Contact: good eye contact Motor Behavior: no abnormal motor movements Speech: normal rate/rhythm/volume of speech Affect: + depressed affect Mood: + depressed mood and + anxious mood Thought Process: goal directed thought process Thought Content: reality based without delusions Suicidal Thoughts: denies suicidal thoughts, denies suicidal plan and denies suicidal intent Homicidal Thoughts: denies homicidal thoughts Hallucinations: no auditory hallucinations and no visual hallucinations Cognition: recent memory grossly intact, remote memory grossly intact, attention grossly intact and language grossly intact Estimated Intelligence: consistent with education level Insight: + fair insight Judgment: + fair judgement Vital Signs (Past 24 Hours) Last Vital Signs Temp 35.4 C L 12/03/23 06:00 Pulse 93 H 12/03/23 06:00 Resp 16 12/03/23 06:00 BP 115/81 12/03/23 06:00 Pulse Ox 97 12/02/23 14:00 O2 Del Method Room Air 12/02/23 14:00 Results & Data ([facility]) Current Inpatient Medications Current Inpatient Medications: Current Inpatient Medications Acetaminophen (Acetaminophen 325 Mg Tab) 650 mg PO Q4H PRN PRN Reason: Headache or Minor Fever Stop: 12/29/23 19:13 Al Hydrox/Mg Hydrox/Simethicone (Aluminum/Magnesium Susp 30 Ml Udc) 30 ml PO Q4H PRN PRN Reason: GI Upset Stop: 12/29/23 19:13 Amphetamine/Dextroamphetamine (Dextroamphetamine/Amphetamine Ir 20 Mg Tab) 10 mg PO DAILY@1600 MARIA ANTONIA Stop: 12/14/23 16:34 Last Admin: 12/02/23 17:08 Dose: 10 mg Amphetamine/Dextroamphetamine (Dextroamphetamine/Amphetamine Er 20 Mg Cap) 20 mg PO DAILY MARIA ANTONIA Stop: 12/15/23 08:59 Last Admin: 12/02/23 08:43 Dose: 20 mg Bismuth Subsalicylate (Bismuth Subsalicylate 262 Mg Chew) 2 tab PO Q30M PRN PRN Reason: Loose Stool/Diarrhea Stop: 12/29/23 19:13 Clonidine HCl (Clonidine Hcl 0.1 Mg Tab) 0.1 mg PO HS MARIA ANTONIA Stop: 12/30/23 21:59 Last Admin: 12/02/23 21:15 Dose: 0.1 mg Hydroxyzine HCl (Hydroxyzine Hcl 25 Mg Tab) 50 mg PO HSZ PRN PRN Reason: Insomnia Stop: 12/29/23 19:13 Last Admin: 12/02/23 22:43 Dose: 50 mg Hydroxyzine HCl (Hydroxyzine Hcl 25 Mg Tab) 25 mg PO Q4H PRN PRN Reason: Anxiety Stop: 12/29/23 19:13 Magnesium Hydroxide (Magnesium Hydroxide Susp 30 Ml Udc) 30 ml PO DAILY PRN PRN Reason: Constipation Stop: 12/29/23 19:13 Miscellaneous (Remove Nicoderm Patch) 1 each N/A DAILY@0859 MARIA ANTONIA Stop: 12/30/23 08:58 Last Admin: 12/02/23 08:45 Dose: 1 each Naltrexone HCl (Naltrexone Hcl 50 Mg Tab) 50 mg PO DAILYBD MARIA ANTONIA Stop: 12/30/23 17:14 Last Admin: 12/02/23 17:24 Dose: 50 mg Nicotine (Nicotine 21 Mg/24 Hr Tdsy) 1 patch TD QAM MARIA ANTONIA Stop: 12/30/23 08:59 Last Admin: 12/02/23 08:43 Dose: 1 patch Nicotine Polacrilex (Nicotine Polacrilex 2 Mg Gum) 2 piece MT Q2H PRN PRN Reason: Nicotine Withdrawal Symptoms Stop: 12/29/23 19:13 Last Admin: 12/02/23 18:16 Dose: 2 piece Sertraline HCl (Sertraline Hcl 50 Mg Tablet) 50 mg PO QAM MARIA ANTONIA Stop: 12/31/23 08:59 Last Admin: 12/02/23 08:43 Dose: 50 mg Sodium Chloride (Sodium Chloride 0.65% Na Soln 45 Ml ([place])) 1 - 2 sprays NA PRN PRN PRN Reason: Nasal Dryness/Congestion Stop: 12/29/23 19:13 Mental Health & Subst Abuse Tx Psychiatrist Name of Psychiatrist: Henrry Ruelas) Psychiatrist's Date Of Appointment With Psychiatric Provider: 12/09/23 - Time of Appointment with Psychiatrist: 1:15PM Psychiatric Appointment Comment: Appointment will be held via phone call Therapist Name of Therapist: N/A Investment Accounting Clerk Name of Investment Accounting Clerk: [employer] [facility] Phone Number for Investment Accounting Clerk: [phone] Case Management Appointment Comment: enforcement manager will contact you to schedule initial appointment Post Discharge Appointments Primary Care Physician Name Of Family Doctor/PCP: Dr. Yovany Kramer Primary Care Date of Future Appointment with PCP: 12/10/23 - Wednesday Time of Appointment with PCP: 10:45 arrival, 11am appt Provider Appointment Comment: In Person - [address], [place] [address]
[2023-12-03 12:56] LABS: Amphetamine Urine, Confirm 2467 ng/mL (<250); Cocaine, Urine 636 ng/mL (<100); MDA negative; MDEA negative; MDMA (Ecstasy) Urine, Confirm negative; Marijuana Quant, GCMS Urine 58 ng/mL (<5); Methamphetamine, Ur Confirm NEGATIVE ng/mL (<250)
[2023-12-04 06:32] VITALS: TEMP 97.7
--- NOTE | 2023-12-04 10:21 | Discharge Summary ---
Date of Service December 04, 2023 History of Present Illness She presents for psychiatric admission for worsening depression and SI with wrecking her car in the context of multiple psychosocial stressors including her biggest support moving away this week, of her close friend in July, recent breakup, argument with the friend she's been staying with and upcoming anniversary of the of her boyfriend who by suicide in front of her, and ongoing grief. Yesterday she had been out the night before and didn't sleep well and then got in argument with the friend the next day and he started yelling and then knowing her friend was leaving to move all culminated to leading her SI to the point of wanting to act on thoughts of wrecking her car. She started driving and "i felt really out of it" and then showed up a friend's house and he helped her reach out to her other friend and go to Crisis. She's experienced a lot of trauma and depression since childhood but it significantly worsened after her boyfriend . Then in the last few months after the of her friend her SI has intensified. SI has been occurring once or twice a week and often worsens after drinking alcohol. He endorses depressive symptoms including tearfulness, anhedonia (but does enjoy doing some painting, restoring antiques, and music), variable motivation, self- guilt, helplessness, hopelessness, worthlessness, has been feeling like a burden, variable energy (worse when not on her ADHD medication), decreased ap petite, and decreased sleep (can fall asleep but then has been waking up startled throughout the night). She also endorses symptoms of anxiety including generalized worries, shakiness, easily overwhelmed and panic attacks typically 2-3 times a week. She's found that when her ADHD is better controlled her anxiety is less. She also endorses PTSD symptoms including hypervigilance, night terrors, in the past would dissociate but less frequent now, emotional changes including numbness, flashbacks (varies but loud noises will trigger), and avoidance. She is currently prescribed psychiatric medication of Adderall TID, has been filling scripts of sertraline but states she hasn't been taking this for years (unclear why she has been filling scripts for this, she reports she hadn't been taking it previously due to cost when she didn't have insurance, however she has been filling it recently). Psychiatric ROS notable for no current nor history of symptoms of codi, psychosis. History of OCD in childhood, self-harm as a teenager. Physical Exam Psychiatric Orientation: alert and oriented x 3 Apperance: appropriately dressed and appropriately groomed Eye Contact: good eye contact Motor Behavior: no abnormal motor movements Speech: normal rate/rhythm/volume of speech Affect: + depressed affect, + anxious affect and + flat affect Mood: + depressed mood and + anxious mood Thought Process: goal directed thought process Thought Content: reality based without delusions Suicidal Thoughts: denies suicidal thoughts, denies suicidal plan and denies suicidal intent Homicidal Thoughts: denies homicidal thoughts Hallucinations: no auditory hallucinations and no visual hallucinations Cognition: recent memory grossly intact, remote memory grossly intact, attention grossly intact and language grossly intact Estimated Intelligence: consistent with education level Insight: + limited insight and + fair insight Judgment: + limited judgement and + fair judgement Vital Signs (Past 24 Hours) Last Vital Signs Temp 36.5 C 12/04/23 06:30 Pulse 78 12/04/23 06:31 Resp 16 12/04/23 06:30 BP 116/81 12/04/23 06:31 Pulse Ox 97 12/02/23 14:00 O2 Del Method Room Air 12/02/23 14:00 Principal Diagnosis MDD/recurrent/severe without psychosis Psychiatric Data See daily stay summary. In short, safety was maintained and the patient was cooperative with care. Medication changes included starting Sertraline 50mg daily, naltrexone 50mg daily, clonidine 0.1mg HS, and switching to Adderall 20mg ER/10mg IR in afternoon and they tolerated this well. A family session was held and safety plan was completed prior to discharge. She refused referral to inpatient rehab. Day of Discharge Assessment Today the patient voices readiness for discharge. They note improvement in mood and deny thoughts to harm self or others. Thoughts remain organized and they are improved from admission. There is no evidence of psychosis. They agree to take mediations as prescribed and keep follow-up appointments. They are stable for discharge to outpatient level of care. She presented future plans for independence, continuing therapy, medication adherence, and spending time with friends. Transition of Care Transition Of Care Record: was reviewed with the patient Advance Directives Advance Directives Information Provided: No Advance Directives: No Mental Health Advance Directive: No Advance Directives on File: No Living Will: No Power of Purchasing Internship: No Advance Directives Reason:: Declines as Mental Health Visit. Suicide Risk Level Suicide Risk Level Comments: Risk Factors Assessment Male: No : Yes Do You Have Access To A Gun?: No Mental Health Diagnoses: Yes Substance Use Disorders: Yes Previous Attempt: Yes Family History of Suicide: Yes (friend and partner) Previous Psychiatric Hospitalization: Yes Hopelessness: No Protective Factors Assessment Employed: Yes Stable Relationships: Yes Supportive Family: Yes Discharge Data Lab Results 11/29/23 11/29/23 11/29/23 15:05 15:20 15:31 WBC 6.79 RBC 4.03 L Hgb 13.4 Hct 39.1 MCV 97.0 MCH 33.3 MCHC 34.3 RDW Std Deviation 45.6 RDW Coeff of Ashley 12.7 Plt Count 256 MPV 10.1 Immature Gran % (Auto) 0.1 Neut % (Auto) 68.5 Lymph % (Auto) 23.9 Hamilton % (Auto) 5.3 Eos % (Auto) 1.6 Baso % (Auto) 0.6 Neut # (Auto) 4.65 Lymph # (Auto) 1.62 [place] # (Auto) 0.36 Eos # (Auto) 0.11 Baso # (Auto) 0.04 Immature Gran # (Auto) 0.01 Sodium 139 Potassium 3.8 Chloride 105 Carbon Dioxide 28 Anion Gap 6 BUN 11 Creatinine 0.65 Est Cr Clr Drug Dosing 112.7 eGFR 112.66 BUN/Creatinine Ratio 16.9 Glucose 186 H Calcium 9.6 Total Bilirubin 0.5 AST 22 ALT 14 Alkaline Phosphatase 45 Total Protein 7.4 Albumin 4.4 Globulin 3.0 Albumin/Globulin Ratio 1.5 TSH 2.198 Urine Color Urine Appearance Urine pH Ur Specific [place] Urine Protein Urine Glucose (UA) Urine Ketones Urine Blood Urine Nitrite Urine Bilirubin Urine Urobilinogen Ur Leukocyte Esterase Urine Test Negative Urine Opiates Screen Ur Methadone, Qual Urine Fentanyl Screen Urine Barbiturates Ur Phencyclidine (PCP) U Amphetamines Confirm U Amphetamin/Meth Scrn U Methamphetamin Confrm Urine MDEA MDMA (Ecstasy) Screen MDMA Urine MDMA U Benzodiazepines Scrn U Cocaine Confirm GC/MS Ur Cocaine Metabolite U Marijuana (THC) Screen U Marijuana THC Carboxy Drug Screen Comment Ethyl Alcohol mg/dL < 10.0 SARS-CoV-2, RNA, NAAT NEGATIVE 11/29/23 Unknown WBC RBC Hgb Hct MCV MCH MCHC RDW Std Deviation RDW Coeff of Ashley Plt Count MPV Immature Gran % (Auto) Neut % (Auto) Lymph % (Auto) [place] % (Auto) Eos % (Auto) Baso % (Auto) Neut # (Auto) Lymph # (Auto) [place] # (Auto) Eos # (Auto) Baso # (Auto) Immature Gran # (Auto) Sodium Potassium Chloride Carbon Dioxide Anion Gap BUN Creatinine Est Cr Clr Drug Dosing eGFR BUN/Creatinine Ratio Glucose Calcium Total Bilirubin AST ALT Alkaline Phosphatase Total Protein Albumin Globulin Albumin/Globulin Ratio TSH Urine Color Yellow Urine Appearance Clear Urine pH 6.5 Ur Specific [place] 1.018 Urine Protein Negative Urine Glucose (UA) Negative Urine Ketones Negative Urine Blood Negative Urine Nitrite Negative Urine Bilirubin Negative Urine Urobilinogen Negative Ur Leukocyte Esterase Negative Urine Test Urine Opiates Screen Neg Ur Methadone, Qual Neg Urine Fentanyl Screen Neg Urine Barbiturates Neg Ur Phencyclidine (PCP) Neg U Amphetamines Confirm 2467 H U Amphetamin/Meth Scrn Pos H U Methamphetamin Confrm NEGATIVE Urine MDEA negative MDMA (Ecstasy) Screen Pos H MDMA negative Urine MDMA negative U Benzodiazepines Scrn Neg U Cocaine Confirm GC/MS 636 H Ur Cocaine Metabolite Pos H U Marijuana (THC) Screen Pos H U Marijuana THC Carboxy 58 H Drug Screen Comment SEE NOTE Ethyl Alcohol mg/dL SARS-CoV-2, RNA, NAAT Hospital Course (1) MDD (major depressive disorder), recurrent episode, severe: (2) Alcohol use disorder, severe, dependence: (3) Alcohol-induced depressive disorder with moderate or severe use disorder: (4) ADHD (attention deficit hyperactivity disorder): (5) Post traumatic stress disorder (PTSD): (6) Night terrors: Plan 12/03/2023: Continue current medications and tx plan. Looking into temporary options where she may be able to stay re: group home vs friend's house. 12/02/2023: Continue current medications and tx plan. CM intake and support meeting tomorrow. 12/01/2023: Continue current medications and tx plan. Looking into options for CM and therapy referrals. 11/30/2023: The patient was admitted to the [facility] ([facility] mental health unit) on q15 min checks (behavioral with suicide precautions) for safety. The patient will participate in group, recreational, and milieu therapies and will be offered additional individual and family sessions as clinically appropriate. -AWSS with thiamine, folic acid and po ativan for scoring -Medications: * Start sertraline 50mg daily * Start naltrexone 50mg daily with dinner * Start clonidine 0.1mg HS * Switch from Adderall IR 10mg TID to Adderall ER 20mg qAM and 10mg IR qafternoon (reviewed PDMP, no irregularities noted, consistent provider and pharmacy) -Would benefit from trauma and substance use therapy -Consider CM referral given housing insecurity -Attempt to get records and coordinate with her outpatient psychiatric provider -Will need outpatient PCP appointment (she has not seen her provider in about 2 years, wants to discuss options for referral for outpatient SKIP HOIST ENGINEER and Endocrinology to determination if need for estrogen and thyroid supplementation) Mental Health & Subst Abuse Tx Psychiatrist Name of Psychiatrist: Henrry Ruelas) Psychiatrist's Date Of Appointment With Psychiatric Provider: 12/09/23 - Time of Appointment with Psychiatrist: 1:15PM Psychiatric Appointment Comment: Appointment will be held via phone call Therapist Name of Therapist: [facility] Therapist's Therapy Appointment Comment: Please call to fill out intake forms and get on waitlist Toe Pounder Name of Toe Pounder: [facility] Phone Number for Toe Pounder: [phone] Date of Appointment with Toe Pounder: 12/06/23 Time of Appointment with Toe Pounder: 10AM Case Management Appointment Comment: At the [facility] office in [place]. Post Discharge Appointments Primary Care Physician Name Of Family Doctor/PCP: Dr. Yovany Kramer Primary Care Date of Future Appointment with PCP: 12/10/23 - Wednesday Time of Appointment with PCP: 10:45 arrival, 11am appt Provider Appointment Comment: In Person - [address], [place] [address] Discharge Plan Discharge Items Patient Disposition: Home - Self-Care Reason For Visit: UNSPECIFIED DEPRESSIVE DISORDER Discharge Diagnosis: MDD (major depressive disorder), recurrent episode, severe: Alcohol use disorder, severe, dependence: Alcohol-induced depressive disorder with moderate or severe use disorder: ADHD (attention deficit hyperactivity disorder): Post traumatic stress disorder (PTSD): Night terrors: Condition on Discharge: Fair Activity: Resume your previous activity Non-emergency contact: Primary Care Provider and Psychiatrist Call non-emergency contact if: you have any medication questions and your symptoms worsen Follow-up/Referrals: Yovany Kramer, [Primary Care Provider] - Diet: Regular Addtl Attending Provider Instructions: -Continue Sertraline 50mg daily (discuss increase with outpatient psychiatrist) -Continue Naltrexone 50mg daily for alcohol cravings -Continue Clonidine 0.1mg at bedtime for sleep, anxiety, ADHD -Continue Adderall 20mg ER daily and 10mg IR in the afternoon -Utilize your support system and get connected to outpatient therapy Pending Studies at Discharge: No Stand-Alone Forms: [email or web address], Smoking Cessation Medications and DC Order Prescriptions: New clonidine HCl 0.1 mg Tablet 0.1 mg PO HS Qty: 30 0RF naltrexone 50 mg Tablet 50 mg PO DAILYBD Qty: 30 0RF dextroamphetamine-amphetamine 20 mg Capsule,Extended Release 24hr 20 mg PO DAILY Qty: 30 0RF nicotine [Nicoderm CQ] 21 mg/24 hr Patch 24 Hour 1 patch transdermal QAM Qty: 30 0RF sertraline 50 mg Tablet 50 mg PO QAM Qty: 30 0RF dextroamphetamine-amphetamine 10 mg tablet 10 mg PO DAILY@1600 Qty: 30 0RF Discontinued dextroamphetamine-amphetamine [Adderall] 10 mg Tablet 10 mg PO TID Rx Instructions: administer doses at least 4-6 hours apart sertraline [Zoloft] 100 mg Tablet 100 mg PO DAILY Discharge Orders: Discharge Order (Routine); Ordered 12/04/23 Ordered By: Dov Gutierrez Admission Data Admit Date/Time: 11/29/23 19:04 Attending Provider: Mary Arvizu Admit Provider: Mary Arvizu Primary Care Provider: Yvoany Kramer Other Interventions: Discharge Summary Assessment (RN) Last Done: 12/04/23 11:50 PSY Interdisciplinary Discharge Planning Last Done: 12/04/23 11:50 [place] [address] D/C day mgmt > 30 min Patient Type Established History Detailed Exam Detailed Medical Decision Making High Complexity Diagnoses MDD (major depressive disorder), recurrent episode, severe F33.2 Alcohol use disorder, severe, dependence F10.20 Alcohol-induced depressive disorder with moderate or severe use disorder F10.24 ADHD (attention deficit hyperactivity disorder) F90.9 Post traumatic stress disorder (PTSD) F43.10 Night terrors F51.4
[2023-12-04 11:50] VITALS: BP 115/81; PULSE 122
== END 2023-12-04 12:15 | disposition home or self-care (01) | DRG 885 ==
LOC: ED 14:52 → 3S 19:04